=== PATIENT | female | born 1955 | race Caucasian/White ===

== ENCOUNTER 2021-04-30 16:58 | Emergency (ER) | payer BC, SELFPAY ==
--- NOTE | ~2021-04-30 | CT_ITS ---
EXAMINATION: CTA OF THE HEAD AND NECK CLINICAL INFORMATION: Dizziness and headaches. Right eyelid swelling and droop. COMPARISON: None. TECHNIQUE: Test bolus sequences followed by intravenous administration 70 mL of Omnipaque 350. Helical imaging was performed in the axial plane from the mediastinum to the skull vertex. Delayed postcontrast imaging of the head was also performed. The data was processed at the registered vascular technologist (rvt)'s workstation for generation of MIP sequences. Three-dimensional volume rendered reformatted images were also generated at an offline 3-D workstation. Stenoses are assessed in accordance with NASCET criteria unless otherwise indicated. This CT examination was performed using dose optimization techniques as appropriate, variously including the following: *Automated exposure control *Adjustment of mA and/or kV according to patient size (this includes techniques or standardized protocols for targeted exams where dose is matched to indication/reason for exam; i.e. extremities or head) *Use of iterative reconstruction technique DLP: 2168 mGy-cm. FINDINGS: CT head: There is no evidence of acute intracranial hemorrhage or territorial infarction. There is no loss of yeboah to white matter differentiation. No abnormal mass effect or midline shift is seen. No extra-axial fluid collections are identified. There is no abnormal enhancement. The ventricles are normal in size. There is no abnormal attenuation within the brain parenchyma. The osseous structures and soft tissues are normal. The mastoid air cells and visualized portions of the paranasal sinuses are well aerated. CTA neck: There is moderate eccentric luminal narrowing at the origin of the left subclavian artery due to lipid rich plaque. There is additional moderate stenotic narrowing in the left subclavian artery at the thoracic outlet as well. The common carotid arteries are normal in caliber. There is mild luminal narrowing at the origin of the left internal carotid artery with eccentric lipid rich plaque. Mild luminal irregularity in the mid cervical segment of the left ICA as well. Minimal luminal irregularity at the origin of the right ICA. The dominant right vertebral artery is normal in caliber. The left vertebral artery is hypoplastic. The V2 segment of the left vertebral artery demonstrates multifocal areas of luminal irregularity. There is focal severe stenotic narrowing of the left vertebral artery at the C5 level within the transverse foramen. The soft tissues of the neck are unremarkable. The imaged portions of the lungs are clear. Mild subpleural scarring partially visualized at the left lung apex. CTA head: The intradural vertebral arteries and basilar artery are normal. The posterior cerebral arteries are widely patent. The internal carotid arteries are of normal caliber. The ANA MARIA and MCA vascular complexes bilaterally are normal. The venous sinuses opacify normally. CT/CT angio head neck IMPRESSION: No acute intracranial process. No abnormal enhancement. Normal CT angiogram of the head. Moderate areas of luminal narrowing at the origin and thoracic outlet segment of the left subclavian artery. Mild luminal irregularities in the cervical internal carotid arteries without significant stenosis. Nondominant cervical left vertebral artery with luminal irregularities from presumed atheromatous disease. Severe focal stenosis in the mid V2 segment.
[2021-04-30 17:02] VITALS: BP 131/61; PULSE 108; RESP 20; TEMP 37.3; O2SAT 95; BMI 30.6
--- NOTE | 2021-04-30 18:19 | ED_ITS ---
HPI - General Adult General Chief complaint: Headache Stated complaint: ? stroke Time Seen by Provider: 04/30/21 17:36 Source: patient Mode of arrival: ambulatory Limitations: no limitations History of Present Illness HPI narrative: 65 y/o female with history of DM2, HLD, anxiety, depression, chronic back pain on chronic opiates, active smoker (1/2ppd) who presents to the ER from home with 2 weeks of intermittent headaches, dizzy spells and on/off chest pains. She was seen by her PCP who did blood workup and EKG which were unremarkable. She called her doctor again today when she developed new onset right upper eyelid swelling and drooping. She was told to come to the ER for further evaluation. She states it is painful, red and swollen. Worse with palpation. She denies trauma or FB sensation. No vision changes. She reports intermittent dizziness with position changes and it feels like the room is spinning. None presently, happened 2 times over the last 2 weeks when she bent down and stood up quickly. MD complaint: headache, dizziness, right eye pain Onset (ago): week(s) Location: head and face Radiation: non-radiation Severity: moderate Quality: aching Pain Consistency: intermittent Relieving factors: rest Exacerbating factors: movement Associated symptoms: chest pain, headaches and weakness Treatments prior to arrival: none Related Data Previous Rx's Medication Instructions Recorded euzvclqgpg-zlyyscyapurfg-ierr 1 cap PO Q8H PRN #10 cap 04/30/21 [Fioricet] erythromycin 0.5 inch OPHTHALMIC (EYE) BID #1 g 04/30/21 meclizine 25 mg PO TID PRN #10 tab 04/30/21 Allergies Allergy/AdvReac Type Severity Reaction Status Date / Time No Known Allergies Allergy Unverified 07/16/20 19:46 [No Known Allergies*] Review of Systems Review of Systems: Constitutional: No Fever, No Chills ENT/Mouth: No sore throat, No Rhinorrhea, No Swallowing Difficulty Eyes: No Eye Pain, No Swelling, No Redness Cardiovascular: + Chest Pain, No SOB, No Orthopnea, No Edema Respiratory: No Cough, No Sputum, No Wheezing, No dyspnea Gastrointestinal: No Nausea, No Vomiting, No Diarrhea, No abdominal Pain, No Hematochezia, No Melena Genitourinary: No Dysuria, No Urinary Frequency, No Hematuria Musculoskeletal: + joint pain,+ Myalgias Skin: No Skin Lesions, No rash Neuro: No Weakness, No Numbness, + Dizziness, + Headache Psych: No Anxiety/Panic, No Depression Heme/Lymph: No Bruising, No Lymphadenopathy Endocrine: No Polyuria, No Polydipsia [facility] Past Medical History Medical History (Updated 04/30/21 @ 21:28 by AGUSTO Dunne) Depression Diabetes High cholesterol Social History Social History Advance Directives: No Advance Directives Information Provided: Yes Physical Exam Vital Signs: Vital Signs: Last Vital Signs Temp 98.3 F 04/30/21 19:53 Pulse 80 04/30/21 19:53 Resp 18 04/30/21 19:53 BP 140/77 H 04/30/21 19:53 Pulse Ox 96 04/30/21 19:53 Body Mass Index 30.6 Appearance: Alert. Oriented X3. No acute distress. Eyes: Right upper eyelid with swelling, ertythema and small pustule medially, tender. Pupils equal, round and reactive to light. EOMI, no nystagmus. ENT: Pharynx normal. Neck: Normal inspection. Neck supple. CVS: Normal heart rate and rhythm. Pulses normal. Respiratory: No respiratory distress. Breath sounds normal. Abdomen: Soft and nontender. +BS x4 Skin: Skin warm and dry. Normal skin color. Normal skin turgor. No rashes. Extremities: No lower extremity edema. Neuro: Oriented X 3. No motor deficit. No sensory deficit. Ambulatory. Clear speech. Normal heel to toe and finger to nose. NIH Stroke Scale Internal: Initial- Upon Arrival Level of Consciousness: Alert Level of Consciousness Questions: Answers both questions correctly Level of Consciousness Commands: Performs both tasks correctly Best Gaze: Normal Visual: No visual loss Facial Palsy: Normal Motor Arm (Right): No drift Motor Arm (Left): No drift Motor Leg (Right): No drift Motor Leg (Left): No drift Limb Ataxia: Absent Sensory: Normal Best Language: No aphasia Dysarthia: Normal Extinction and Inattention: No abnormality Score: 0 Course Course Course Narrative: 65 y/o female presenting with 2 weeks of headaches, dizziness with position changes along with new right eyelid swelling and droop. Exam is consistent with hordeolum with visible pustule. Her neuro exam is completely intact and benign. No dizziness. Will get lab workup and CTA head/neck - given her symptoms have been going on for 2 weeks if she had a CVA it should be visible on imaging. Not a tPA candidate at this time with NIH 0 and duration of 2+ weeks. Reevaluation(s) Reevaluation #1: Labs normal. CT head showed no acute stroke or LVO. Results were reviewed with Dr. Rodriguez - no [facility] stroke. Her symptoms are minimal at this time without dizziness, only mild headache. She does not require inpatient admission at this time. Recommend starting baby ASA, PRN meclizine, fiorcet and f/u wtih PCP on Monday (has appointment) and Neurology for further workup and management. Stable for d/c home, patient agrees with plan and will return if any worsening symptoms. Medical Decision Making Lab Data Result diagrams: 04/30/21 18:13 04/30/21 18:13 Labs: Lab Results 04/30/21 04/30/21 04/30/21 Range/Units 18:13 18:13 18:13 WBC 8.1 (4.8-10.8) X10*3/uL RBC 5.11 (4.20-5.50) X10*6/uL Hgb 14.9 (12.0-16.0) g/dl Hct 44.9 (37-47) % MCV 87.9 (80-98) fL MCH 29.2 (27.0-33.0) pg MCHC 33.2 (31.0-35.0) g/dl RDW 12.3 (11.0-16.0) % Plt Count 330 (160-400) X10*3/uL MPV 9.9 (9.4-12.3) fL Immature Gran % (Auto) 0.5 H (0.0-0.4) % Neut % (Auto) 53.8 (45-73) % Lymph % (Auto) 34.1 (20-40) % [place] % (Auto) 8.4 (2-11) % Eos % (Auto) 2.7 (0-4) % Baso % (Auto) 0.5 (0-2) % Lymph # (Auto) 2.8 (1.2-4.9) X10*3/uL [place] # (Auto) 0.7 (0.1-1.2) X10*3/uL Eos # (Auto) 0.2 (0.0-0.4) X10*3/uL Baso # (Auto) 0.0 (0.0-0.2) X10*3/uL Abs Immat Gran (auto) 0.04 H (0.00-0.03) X10*3/uL Absolute Neuts (auto) 4.3 (2.0-8.3) X10*3/uL Absolute Nucleated RBC 0.000 (0.0-0.012) X10*3/uL Nucleated RBC % (auto) 0.0 (0.0-0.2) /100WBC Sodium 140 (135-145) mmol/L Potassium 3.8 (3.3-5.1) mmol/L Chloride 104 (96-108) mmol/L Carbon Dioxide 23 (22-29) mmol/L Anion Gap 17 (12-20) BUN 15 (9-16) mg/dL Creatinine 0.83 (0.5-1.4) mg/dL Estim Creat Clear Calc 66.0 Estimated GFR > 60 Random Glucose 167 H (60-115) mg/dL Calcium 9.7 (8.4-10.2) mg/dL Troponin I High Sens < 3.5 (<3.5-17.0) ng/L Discharge Plan Discharge Clinical Impression: Vertigo Headache Qualifiers: Headache type: unspecified Headache chronicity pattern: unspecified pattern Intractability: not intractable Qualified Code(s): R51.9 - Headache, unspecified Hordeolum Qualifiers: Hordeolum type: externum Laterality: right Eyelid: upper Qualified Code(s): H00.011 - Hordeolum externum right upper eyelid Patient Disposition: Home, Self-Care Instructions: Stye (ED), Vertigo (ED), General Headache (ED) Additional Instructions: Your lab workup today was unremarkable. Your CT scan did not show any acute strokes or blockages of the blood vessels. It did show some vessel narrowing, so recommend you start a baby aspirin 81 mg per day. Recommend following up with Neurology for further workup. Follow up with your PCP on Monday as scheduled. Take the prescribed medictions as needed for headache and dizziness. Use the antibiotic ointment in your eye 2x per day. Use warm compresses to your eye 5-6 times per day. Do not rub it scratch it. If you develop new or worsening symptoms call 911 or come back to the ER for further evaluation. Prescriptions: New meclizine 25 mg tablet 25 mg PO TID PRN (Reason: dizziness) Qty: 10 RF: 0 erythromycin 5 mg/gram (0.5 %) ointment 0.5 inch ophthalmic (eye) BID Qty: 1 RF: 0 zprftvocow-rczjimthjupxb-wnge [Fioricet] 50-300-40 mg capsule 1 cap PO Q8H PRN (Reason: pain) Qty: 10 RF: 0 Referrals: Sadia Londono MD [Physician] - 3 days (headaches, dizziness)
[2021-04-30 18:21] LABS: MANUAL DIFF FLAG NO
[2021-04-30 18:24] LABS: Basophils Percent Auto 0.5 % (0-2); Eosinophils Absolute Auto 0.2 X10*3/uL (0.0-0.4); Eosinophils Percent Auto 2.7 % (0-4); Hematocrit 44.9 % (37-47); Hemoglobin 14.9 g/dl (12.0-16.0); Imm Gran Abs Auto 0.04 X10*3/uL (0.00-0.03); Imm Gran Pct Auto 0.5 % (0.0-0.4); Lymphocytes Absolute Auto 2.8 X10*3/uL (1.2-4.9); Lymphocytes Percent Auto 34.1 % (20-40); Mean Corpuscular HGB Conc 33.2 g/dl (31.0-35.0); Mean Corpuscular Hemoglobin 29.2 pg (27.0-33.0); Mean Corpuscular Volume 87.9 fL (80-98); Mean Platelet Volume 9.9 fL (9.4-12.3); Monocytes Absolute Auto 0.7 X10*3/uL (0.1-1.2); Monocytes Percent Auto 8.4 % (2-11); Neutrophils Absolute Auto 4.3 X10*3/uL (2.0-8.3); Neutrophils Percent Auto 53.8 % (45-73); Platelet Count 330 X10*3/uL (160-400); Red Blood Count 5.11 X10*6/uL (4.20-5.50); Red Cell Distribution Width 12.3 % (11.0-16.0); White Blood Count 8.1 X10*3/uL (4.8-10.8)
[2021-04-30 18:46] LABS: Anion Gap 17 (12-20); Blood Urea Nitrogen 15 mg/dL (9-16); Calcium 9.7 mg/dL (8.4-10.2); Carbon Dioxide 23 mmol/L (22-29); Chloride 104 mmol/L (96-108); Estimated Glomerular Filt Rate > 60; Glucose Random 167 mg/dL (60-115); Sodium 140 mmol/L (135-145)
[2021-04-30 18:50] LABS: Troponin-I High Sensitivity < 3.5 ng/L (<3.5-17.0)
[2021-04-30] MEDS: iohexoL 350 MG/ML 100 ML INFUS..BTL IV (19:28)
[2021-04-30 19:31] LABS: Potassium 3.8 mmol/L (3.3-5.1)
[2021-04-30] MEDS: Acetaminophen 325 MG TABLET 975 MG PO (19:51)
[2021-04-30 19:53] VITALS: BP 140/77; PULSE 80; RESP 18; TEMP 36.8; O2SAT 96
[2021-04-30] MEDS: Ketorolac Tromethamine 30 MG/ML VIAL IVPUSH (21:36)
== END 2021-04-30 21:55 | disposition home or self-care (01) ==
PROVIDERS: Emergency Provider Internal Medicine; PCP Nurse Practitioner Family
DX: R42 Dizziness and giddiness (principal); R51.9 Headache, unspecified; H00.011 Hordeolum externum right upper eyelid; E11.9 Type 2 diabetes mellitus without complications
CPT/HCPCS: 36415; 70496; 70498; 80048; 84484; 85025; 96374; 99284; J1885; Q9967

== ENCOUNTER 2024-02-14 19:39 | Emergency (ER) | payer MEDICARE, BC, SELFPAY ==
--- NOTE | ~2024-02-14 | XR_ITS ---
EXAMINATION: XR SHOULDER, LEFT CLINICAL INFORMATION: Atraumatic left shoulder pain, question bursitis COMPARISON: None available. TECHNIQUE: AP external rotation, Grashey, scapular Y views of the left shoulder. FINDINGS: The bones and soft tissues are normal. No fracture. Glenohumeral and acromioclavicular alignment is anatomic with normal joint space. No abnormal soft tissue calcifications. XR/XR shoulder LT min 2V IMPRESSION: Unremarkable plain radiographs of the left shoulder.
--- NOTE | ~2024-02-14 | XR_ITS ---
EXAMINATION: XR CHEST 2 VIEW CLINICAL INFORMATION: Chest pain COMPARISON: None TECHNIQUE: PA and lateral views of the chest obtained. FINDINGS: The lungs are clear. There are no pleural effusions. The cardiomediastinal silhouette is normal. No rib fracture, bone lesion or pneumothorax is detected. XR/XR chest 2V IMPRESSION: No acute cardiopulmonary disease.
[2024-02-14 19:42] VITALS: BP 136/55; PULSE 93; RESP 16; TEMP 36.5; O2SAT 97; BMI 28.3
--- NOTE | 2024-02-14 19:42 | ECG_ITS ---
Test Reason : chest pain Blood Pressure : / mmHG Vent. Rate : 096 BPM Atrial Rate : 096 BPM P-R Int : 142 ms QRS Dur : 072 ms QT Int : 350 ms P-R-T Axes : 047 -26 068 degrees QTc Int : 442 ms Normal sinus rhythm Cannot rule out Anterior infarct , age undetermined Abnormal ECG No previous ECGs available Referred By: Kimberlyn Woodall Electronically Signed By:KAMLA MEHTA
--- NOTE | 2024-02-14 19:43 | ED_ITS ---
HPI - General Adult General Chief complaint: Chest Pain Stated complaint: Chest pain Time Seen by Provider: 02/15/24 01:09 Source: patient, RN notes reviewed and old records reviewed Mode of arrival: ambulatory Limitations: no limitations History of Present Illness HPI narrative: 68-year-old female medical history significant for diabetes, hyperlipidemia, chronic pain syndrome, anxiety and depression presents for evaluation of chest and back pain. Patient reports that she started with left shoulder pain about 3 weeks ago. She reports a history of bursitis and had a cortisone injection about 9 months ago left shoulder Patient reports that 3 days ago she started with chest pain feels that radiates to her back She also complains of left-sided pain and headache for the last 2 days Denies any injury, trauma. Denies any cough, shortness of breath Denies any abdominal pain, nausea, vomiting. She rates her pain as 8/10 constant Her pain is worse with movement Denies any known history of coronary artery disease Patient returned from [place] 3 days ago She has no other complaints or concerns at this time Related Data Previous Rx's ?Medication ?Instructions ?Recorded srqtnfkofm-itbibenouswtz-eybewxbj 1 cap PO Q8H PRN pain #10 caps 04/30/21 50 mg-300 mg-40 mg capsule (Fioricet) erythromycin 5 mg/gram (0.5 %) eye 0.5 inch ophthalmic (eye) BID #1 g 04/30/21 ointment meclizine 25 mg tablet 25 mg PO TID PRN dizziness #10 tabs 04/30/21 Allergies Allergy/AdvReac Type Severity Reaction Status Date / Time No Known Allergies Allergy Unverified 02/14/24 19:52 [No Known Allergies*] Review of Systems 2 Constitutional: Constitutional: Denies body ache(s), Denies chills, Denies fever(s) and Reports headache(s) Eyes: Eyes: Denies blurry vision ENT: Reports headache(s), Reports neck pain and Denies sore throat Cardiovascular: Cardiovascular: Reports chest pain and Denies dyspnea Respiratory: Respiratory: Denies cough and Denies dyspnea Gastrointestinal: Gastrointestinal: Denies abdominal pain, Denies nausea and Denies vomiting Genitourinary: Genitourinary: Denies dysuria Musculoskeletal: Musculoskeletal: Reports back pain, Reports arthralgias, Denies joint swelling, Reports limited range of motion and Reports neck pain Integumentary/Breasts: Skin/Breast: Denies rash Neurologic: Reports headache(s) Psychiatric: Psychiatric: Denies suicidal ideation [facility] Past Medical History Medical History (Updated 02/15/24 @ 01:25 by Robinson Farfan) Depression High cholesterol Diabetes Social History Social History Advance Directives: No Advance Directives Information Provided: No Physical Exam ED Vital Signs: Vital Signs - 24 hr 02/14/24 19:42 02/15/24 01:27 Temperature 97.7 F 98.5 F Pulse Rate 93 76 Respiratory Rate 16 16 Blood Pressure 136/55 L 123/67 Pulse Oximetry 97 95 Oxygen Delivery Method Room Air Room Air BMI result Body Mass Index 28.3 Const General: healthy appearing, comfortable, no acute distress, alert and awake Nutritional Appearance: well nourished Orientation/consciousness: patient oriented x3 HENMT Head: Yes normocephalic and Yes atraumatic Eyes Eyelids: Yes eyelids normal Conjunctivae: conjunctivae normal Sclerae: sclerae normal Corneas: corneas normal Pupils: Equal, round and reactive pupils present EOM: EOMs intact bilaterally Neck Neck: Yes full ROM Chest Chest palpation & inspection: no crepitus Resp Effort & Inspection: normal respiratory effort, able to speak in complete sentences, no audible wheezes and not labored Auscultation: clear to auscultation bilaterally Cardio Rate: regular rate Rhythm: regular rhythm GI Inspection: No distended Palpation (GI): Soft to palpation, not firm, nontender, no guarding and not rigid Back/Spine/Pelvis Other: Tenderness to the left trapezius muscle group last cervical paraspinous region. No vertebral tenderness Skin General skin exam: elasticity normal Neuro General: patient oriented x3 Cranial nerves: Yes Equal, round and reactive pupils present and Yes Bilaterally intact EOM present Cognition (Neuro): normal cognition Extrem Other: Tenderness globally to the left shoulder. She has full range of motion to left shoulder. No deformity. Course Course Course Narrative: RME:?68 yo female hx of shoulder bursitis here for eval of substernal chest pain radiation to back x3 days. recent flight back from [place]. admits to left shoulder pain radiating to left neck x3 days. hx bursitis. no injury/trauma. labs, ekg, cxr ordered. Full HPI, ROS and PE to be performed by the primary ED provider. Reevaluation(s) Reevaluation #1: Patient is prescribed oxycodone 10 mg at home which she reports that she has not taken. She has requesting a dose prior to discharge which was given. She has not driving home, her daughter is picking her up her report Time: 01:44 Medical Decision Making Medical Decision Making [facility] Narrative: 68-year-old female with past medical history as documented above presents for evaluation of chest pain, shoulder pain, back pain or neck pain. Her pain is reproducible on exam. There are no concerning lab findings, she was out for ACS. X-rays without traumatic injury. This likely related to a tension headache. Her D-dimer is negative, she was out for PE. Plan for discharge with symptomatic care. Vital signs are within normal limits Differential Diagnosis Differential Diagnoses: The differential diagnosis associated with the presentation includes Chest pain Shoulder pain Muscle strain Costochondritis ACS less likely PE GERD Anxiety Admission/Observation Consideration of admission/observation: Escalation of care including admission/observation considered Consider admission for chest pain but the patient rules out for ACS and PE, she has stable vitals Lab Data [facility] Lab Attestation statement: I reviewed the patient's lab results. No leukocytosis or anemia. Normal platelet count. No electrolyte abnormalities. Troponin undetectable. D-dimer less than 150 02/14/24 20:01 02/14/24 20:01 Labs: Lab Results 02/14/24 Range/Units 20:01 WBC 7.7 (4.8-10.8) X10*3/uL RBC 5.10 (4.20-5.50) X10*6/uL Hgb 14.7 (12.0-16.0) g/dl Hct 44.2 (37.0-47.0) % MCV 86.7 (80.0-98.0) fL MCH 28.8 (27.0-33.0) pg MCHC 33.3 (31.0-35.0) g/dl RDW 12.8 (11.0-16.0) % Plt Count 327 (160-400) X10*3/uL MPV 9.6 (9.4-12.3) fL Immature Gran % (Auto) 0.3 (0.0-0.4) % Neut % (Auto) 59.2 (45-73) % Lymph % (Auto) 29.1 (20-40) % [place] % (Auto) 8.7 (2-11) % Eos % (Auto) 2.2 (0-4) % Baso % (Auto) 0.5 (0-2) % Lymph # (Auto) 2.2 (1.2-4.9) X10*3/uL [place] # (Auto) 0.7 (0.1-1.2) X10*3/uL Eos # (Auto) 0.2 (0.0-0.4) X10*3/uL Baso # (Auto) 0.0 (0.0-0.2) X10*3/uL Abs Immat Gran (auto) 0.02 (0.00-0.03) X10*3/uL Absolute Neuts (auto) 4.6 (2.0-8.3) x10*3/uL Absolute Nucleated RBC 0.000 (0.0-0.012) X10*3/uL Nucleated RBC % (auto) 0.0 (0.0-0.2) /100WBC D-Dimer High Sensitivty < 150 NG/ML Sodium 140 (135-145) mmol/L Potassium 3.9 (3.3-5.1) mmol/L Chloride 107 (96-108) mmol/L Carbon Dioxide 23 (22-29) mmol/L Anion Gap 14 (12-20) BUN 21 H (9-16) mg/dL Creatinine 0.77 (0.5-1.4) mg/dL Estim Creat Clear Calc 65.7 Estimated GFR > 60 Random Glucose 194 H (60-115) mg/dL Calcium 9.5 (8.4-10.2) mg/dL Magnesium 2.0 (1.6-2.6) mg/dL Total Bilirubin 0.3 (0.0-1.0) mg/dL AST 12 (5-31) U/L ALT 17 (0-31) U/L Alkaline Phosphatase 95 (39-117) U/L Troponin I High Sens < 2.7 (<3.5-17.0) ng/L Total Protein 7.4 (6.5-8.0) g/dL Albumin 4.1 (3.5-5.0) g/dL Independent Interpretation I performed an independent interpretation of an: EKG (Normal sinus rhythm with a rate of [address] segment elevations or depressions. No ectopy) and Plain X-Ray Interpretation: Left shoulder x-ray without evidence of dislocation or acute fracture. No significant arthritic changes Chest x-ray without focal infiltrates, pneumothorax Radiology Impression Discussion of test interpretation with radiology: I have reviewed the radiologist's reading. Radiologist Impression: IMPRESSION: Unremarkable plain radiographs of the left shoulder. IMPRESSION: No acute cardiopulmonary disease. Discharge Plan Discharge Clinical Impression: Atypical chest pain, Acute shoulder pain, Back pain Patient Disposition: Home, Self-Care Instructions: Chest Pain (ED), Back Pain (ED), Shoulder Pain (ED) Additional Instructions: Your workup in the ER today was reassuring. This includes your blood work, EKG, chest x-ray and shoulder x-ray. Your pain is most likely musculoskeletal in origin. You may have some degree of bursitis as well. I recommend using ibuprofen/Tylenol for pain. You may use your home oxycodone for more severe breakthrough pain I recommend that you follow-up with the orthopedic or pain management doctor that gave you the cortisone injection as you are due for another Return for new or worsening symptoms Prescriptions: No Action meclizine 25 mg tablet 25 mg PO TID PRN (Reason: dizziness) Qty: 10 0RF erythromycin 5 mg/gram (0.5 %) ointment 0.5 inch ophthalmic (eye) BID Qty: 1 0RF hwigtynahb-iviswalakavll-ttag [Fioricet] 50-300-40 mg capsule 1 cap PO Q8H PRN (Reason: pain) Qty: 10 0RF Print Language: Belarusian
[2024-02-14 20:05] LABS: MANUAL DIFF FLAG NO
[2024-02-14 20:06] LABS: Basophils Percent Auto 0.5 % (0-2); Eosinophils Absolute Auto 0.2 X10*3/uL (0.0-0.4); Eosinophils Percent Auto 2.2 % (0-4); Hematocrit 44.2 % (37.0-47.0); Hemoglobin 14.7 g/dl (12.0-16.0); Imm Gran Abs Auto 0.02 X10*3/uL (0.00-0.03); Imm Gran Pct Auto 0.3 % (0.0-0.4); Lymphocytes Absolute Auto 2.2 X10*3/uL (1.2-4.9); Lymphocytes Percent Auto 29.1 % (20-40); Mean Corpuscular HGB Conc 33.3 g/dl (31.0-35.0); Mean Corpuscular Hemoglobin 28.8 pg (27.0-33.0); Mean Corpuscular Volume 86.7 fL (80.0-98.0); Mean Platelet Volume 9.6 fL (9.4-12.3); Monocytes Absolute Auto 0.7 X10*3/uL (0.1-1.2); Monocytes Percent Auto 8.7 % (2-11); Neutrophils Absolute Auto 4.6 x10*3/uL (2.0-8.3); Neutrophils Percent Auto 59.2 % (45-73); Platelet Count 327 X10*3/uL (160-400); Red Cell Distribution Width 12.8 % (11.0-16.0); White Blood Count 7.7 X10*3/uL (4.8-10.8)
[2024-02-14 20:14] LABS: D Dimer High Sensitivity < 150 NG/ML
[2024-02-14 20:19] LABS: Alanine Aminotransferase 17 U/L (0-31); Albumin Level 4.1 g/dL (3.5-5.0); Alkaline Phosphatase 95 U/L (39-117); Anion Gap 14 (12-20); Aspartate Amino Transferase 12 U/L (5-31); Bilirubin Total 0.3 mg/dL (0.0-1.0); Blood Urea Nitrogen 21 mg/dL (9-16); Calcium 9.5 mg/dL (8.4-10.2); Carbon Dioxide 23 mmol/L (22-29); Chloride 107 mmol/L (96-108); Creatinine Clr Calc Pharmacy 65.7; Estimated Glomerular Filt Rate > 60; Glucose Random 194 mg/dL (60-115); Potassium 3.9 mmol/L (3.3-5.1); Sodium 140 mmol/L (135-145); Total Protein 7.4 g/dL (6.5-8.0)
[2024-02-14 20:27] LABS: Troponin-I High Sensitivity < 2.7 ng/L (<3.5-17.0)
[2024-02-15 01:27] VITALS: BP 123/67; PULSE 76; RESP 16; TEMP 36.9; O2SAT 95
[2024-02-15] MEDS: oxyCODONE HCl Immed Release 5 MG TABLET 10 MG PO (01:41)
[2024-02-15 01:44] VITALS: BP 123/67; PULSE 76; RESP 16; TEMP 36.9; O2SAT 95
== END 2024-02-15 01:45 | disposition home or self-care (01) ==
PROVIDERS: Physician Assistant Medical; Emergency Provider Emergency Medicine Emergency Medical Services
DX: R07.89 Other chest pain (principal); M54.50 Low back pain, unspecified; G89.4 Chronic pain syndrome; R11.2 Nausea with vomiting, unspecified; M25.512 Pain in left shoulder; Z79.899 Other long term (current) drug therapy
CPT/HCPCS: 36415; 71046; 73030; 80053; 83735; 84484; 85025; 85379; 93005; 99283; 99284

== ENCOUNTER → 2024-02-14 19:42 | Outpatient (BNV) | payer MEDICARE, BC, SELFPAY | PROVIDERS: Emergency Provider Emergency Medicine Emergency Medical Services; Visit Provider Internal Medicine | DX: R07.9 Chest pain, unspecified (principal); R94.31 Abnormal electrocardiogram [ECG] [EKG] | CPT/HCPCS: 93010 ==

== ENCOUNTER 2024-09-27 09:08 | Inpatient (IN) | payer MEDICARE, BC, SELFPAY ==
--- NOTE | ~2024-09-27 | CT_ITS ---
EXAMINATION: CT ABDOMEN AND PELVIS WITHOUT AND WITH CONTRAST CLINICAL INFORMATION: lower GIB pain COMPARISON: CT abdomen/pelvis 09/01/2019 TECHNIQUE: Multidetector volumetric imaging was performed of the abdomen and pelvis before and after the IV administration of 85 mL of Omnipaque 350 intravenous contrast. Sagittal and coronal reformatted images were obtained on the technologist's workstation. This CT examination was performed using dose optimization techniques as appropriate, variously including the following: *Automated exposure control *Adjustment of mA and/or kV according to patient size (this includes techniques or standardized protocols for targeted exams where dose is matched to indication/reason for exam; i.e. extremities or head) *Use of iterative reconstruction technique DLP: 1290 mGy-cm FINDINGS: LUNG BASES: Lingular 0.6 cm nodule is stable since 2019 and favored to represent a benign such as nodular atelectasis/scarring. Bibasilar dependent subsegmental atelectasis. No pleural effusion. The visualized mediastinum is normal. LIVER, GALLBLADDER, AND BILIARY TREE: The liver is normal in size, shape, and attenuation. No focal hepatic lesion or biliary ductal dilatation is present. The gallbladder is unremarkable with no evidence of radiopaque gallstones, gallbladder wall thickening, or obvious pericholecystic inflammatory changes. PANCREAS: Unremarkable SPLEEN: Unremarkable ADRENAL GLANDS: 1.4 cm left adrenal nodule measures fat attenuation noncontrast imaging, favored to represent a lipid rich adenoma not significantly changed from 2019. Normal right adrenal gland. KIDNEYS AND URETERS: There is an anterior left renal 1.2 cm hyperattenuating cystic structure measuring up to 70 Hounsfield units (series #14 axial image 323). There is a left renal parapelvic cyst. There are additional subcentimeter left renal hypodense lesions are too small to characterize, though statistically favored to represent cysts. The kidneys are normal in size, shape, and attenuation. No hydronephrosis, hydroureter, or calculi seen. No perinephric stranding. BLADDER: Unremarkable GASTROINTESTINAL TRACT: Normal CT appearance of the stomach. The small and large bowel are nondilated. There is no evidence for contrast extravasation to suggest acute gastroduodenal bleeding. There is a length of sigmoid wall thickening with adjacent inflammatory stranding. On delayed phase imaging there is a peripherally enhancing mural collection along the left lateral rectosigmoid colon, distal to the previously described inflammatory stranding, measuring approximately 2 x 0.7 x 1.3 cm (series #16 axial image 176 and series #18 coronal image 80). No significant diverticulosis. Normal appendix. ABDOMINAL WALL: No significant hernia is appreciated. LYMPH NODES: Normal VASCULAR: Aorta is nonaneurysmal with moderate scattered atheromatous plaque and mild calcifications. PELVIC VISCERA: Status post hysterectomy. No adnexal masses. OSSEOUS STRUCTURES: Unremarkable CT/CT gi bleed abd pel wo/w IVcon IMPRESSION: 1. There is a length of sigmoid colon wall thickening with adjacent inflammatory stranding. On delayed phase imaging there is a 2 cm peripherally enhancing mural collection along the left lateral rectosigmoid colon, distal to the previously described inflammatory stranding. No significant diverticulosis. Findings are concerning for acute diverticulitis versus colitis with a small mural abscess. 2. There is an anterior left renal 1.2 cm hyperattenuating cystic structure measuring up to 70 Hounsfield units. This may represent a hemorrhagic/proteinaceous cyst, however a solid renal mass cannot be excluded. Recommend further evaluation with renal ultrasound. 3. There is no evidence for contrast extravasation to suggest acute gastroduodenal bleeding. Fleischner guidelines were followed. Electronically signed by: Yana Kurtz DO 09/27/2024 05:10 PM [facility]
--- NOTE | ~2024-09-27 | CT_ITS ---
EXAMINATION: CT ABDOMEN AND PELVIS WITH CONTRAST CLINICAL INFORMATION: Abdominal pain. COMPARISON: CT dated September 27, 2024. Noncontrast CT dated September 01, 2019. TECHNIQUE: Multidetector volumetric images were obtained from the superior aspect of the liver through the pubic symphysis following administration 85 mL of Omnipaque 350 intravenous contrast. Sagittal and coronal reformatted images were obtained on the technologist's workstation. Oral contrast: Yes This CT examination was performed using dose optimization techniques as appropriate, variously including the following: *Automated exposure control *Adjustment of mA and/or kV according to patient size (this includes techniques or standardized protocols for targeted exams where dose is matched to indication/reason for exam; i.e. extremities or head) *Use of iterative reconstruction technique DLP: 683 mGy-cm FINDINGS: LUNG BASES: Atelectasis, lung bases. LIVER, GALLBLADDER, AND BILIARY TREE: Liver measures 16 cm. Decreased enhancement pattern. No focal lesion. 3 mm hypodensity right hepatic lobe too small to be fully characterized. The portal veins, hepatic veins and intrahepatic portion IVC are patent. No intrahepatic or extrahepatic biliary ductal dilatation. No pericholecystic fluid collection or gallbladder wall thickening. Common bile duct measures 3 mm. PANCREAS: No focal mass. No peripancreatic fluid collection. No main pancreatic ductal dilatation. SPLEEN: 10 cm. No focal mass. ADRENAL GLANDS: There is a 1.4 cm low-density nodule measures 65 Hounsfield units, left adrenal gland. There is a 0.6 cm low density nodular lesion in the right adrenal gland. KIDNEYS AND URETERS: No hydronephrosis. There is a 1 cm low density at the corticomedullary junction of the anterior midportion lower pole junction left kidney, nonspecific. Subcentimeter cyst in lower pole left kidney. BLADDER: Fluid-filled. GASTROINTESTINAL TRACT: There is contrast throughout the small and large intestine. No intestinal obstruction pattern. No focal or diffuse wall thickening in the large intestine, specifically in the sigmoid colon. No diverticula. Terminal ileum is normal. The appendix appears short. No pneumatosis intestinalis. ABDOMINAL WALL: Small fat-containing umbilical hernia. LYMPH NODES: Nonspecific prominent inguinal lymph nodes. Nonspecific prominent mesenteric and retroperitoneal lymph nodes. VASCULAR: Mixed plaques seen at Concentric fashion throughout the infrarenal distal abdominal aorta resulting in 40% volume loss. No intimal flap. No aneurysm. Mixed plaques throughout the iliac arteries. The celiac trunk, superior mesenteric artery, main renal arteries and inferior mesenteric arteries are patent. PELVIC VISCERA: Absent uterus. OSSEOUS STRUCTURES: Multilevel thoracolumbar spondylosis. No acute fracture or gross listhesis. No lytic or blastic lesions. Bone marrow inhomogeneity suggesting osteopenia versus osteoporosis. CT/CT abdomen pelvis w IV con IMPRESSION: Resolved inflammatory/infectious process in the sigmoid colon. Atherosclerosis disease. Low-density nodules, adrenal glands. Lipid rich adenoma (based upon noncontrast CT dated September 01, 2019). Nonspecific lesion in the anterior lower pole/midportion junction left kidney. Recommend renal ultrasound Fleischner guidelines were followed. Electronically signed by: See Thomas MD 10/01/2024 03:25 PM [facility] GURROLA
--- NOTE | ~2024-09-27 | US_ITS ---
EXAMINATION: US RETROPERITONEAL LIMITED (RENAL ONLY) CLINICAL INFORMATION: Abdominal pain. Renal cyst. COMPARISON: CT abdomen/pelvis dated 09/27/2024. CT abdomen and pelvis 09/01/2019. Ultrasound abdomen 09/01/2019. TECHNIQUE: Ultrasound along with color Doppler imaging and spectral analysis was performed of the kidneys. FINDINGS: RIGHT KIDNEY: 11.3 x 6.5 x 4.6 cm (SAG x AP x TRV). The kidney is normal in size, contour, and echogenicity. Renal cortical thickness is normal. No calculi or focal parenchymal lesions. Redemonstration of a right-sided extrarenal pelvis. No hydronephrosis. LEFT KIDNEY: 12.3 x 5.1 x 4.2 cm (SAG x AP x TRV). The kidney is normal in size, contour, and echogenicity. Renal cortical thickness is normal. No renal calculi or hydronephrosis. Simple-appearing left renal cysts with the largest measuring up to 1.2 cm and likely corresponding to the prior CT findings. No concerning parenchymal lesion appreciated on ultrasound. US/US renal BI IMPRESSION: 1. Simple-appearing left renal cysts measuring up to 1.2 cm, likely corresponding to the prior CT findings. No concerning parenchymal lesion appreciated on ultrasound. 2. No hydronephrosis or nephrolithiasis. Electronically signed by: Lakhwinder Menendez MD 09/29/2024 10:19 AM [facility]
[2024-09-27 09:26] VITALS: BP 121/57; PULSE 93; RESP 16; TEMP 36.2; O2SAT 96; BMI 27.5
[2024-09-27 11:52] LABS: MANUAL DIFF FLAG NO
[2024-09-27 11:54] LABS: Basophils Percent Auto 0.4 % (0-2); Eosinophils Absolute Auto 0.1 X10*3/uL (0.0-0.4); Eosinophils Percent Auto 0.9 % (0-4); Hematocrit 46.1 % (37.0-47.0); Hemoglobin 15.6 g/dl (12.0-16.0); Imm Gran Abs Auto 0.03 X10*3/uL (0.00-0.03); Imm Gran Pct Auto 0.3 % (0.0-0.4); Lymphocytes Absolute Auto 2.5 X10*3/uL (1.2-4.9); Lymphocytes Percent Auto 21.9 % (20-40); Mean Corpuscular HGB Conc 33.8 g/dl (31.0-35.0); Mean Corpuscular Hemoglobin 29.5 pg (27.0-33.0); Mean Corpuscular Volume 87.1 fL (80.0-98.0); Mean Platelet Volume 9.5 fL (9.4-12.3); Monocytes Absolute Auto 0.8 X10*3/uL (0.1-1.2); Monocytes Percent Auto 7.1 % (2-11); Neutrophils Absolute Auto 7.9 x10*3/uL (2.0-8.3); Neutrophils Percent Auto 69.4 % (45-73); Platelet Count 391 X10*3/uL (160-400); Red Blood Count 5.29 X10*6/uL (4.20-5.50); Red Cell Distribution Width 12.7 % (11.0-16.0); White Blood Count 11.4 X10*3/uL (4.8-10.8)
[2024-09-27 12:17] LABS: Lipase 10 U/L (8-78)
[2024-09-27 12:21] LABS: Alanine Aminotransferase 15 U/L (0-31); Albumin Level 4.3 g/dL (3.5-5.0); Alkaline Phosphatase 82 U/L (39-117); Anion Gap 16 (12-20); Aspartate Amino Transferase 16 U/L (5-31); Bilirubin Total 0.6 mg/dL (0.0-1.0); Blood Urea Nitrogen 15 mg/dL (9-16); Calcium 9.1 mg/dL (8.4-10.2); Carbon Dioxide 20 mmol/L (22-29); Chloride 107 mmol/L (96-108); Creatinine Clr Calc Pharmacy 66.5; Estimated Glomerular Filt Rate > 60; Glucose Random 123 mg/dL (60-115); Sodium 139 mmol/L (135-145); Total Protein 7.5 g/dL (6.5-8.0)
--- NOTE | 2024-09-27 15:23 | ED.GENADULT ---
HPI - General Adult General Chief complaint: General Medical Stated complaint: Stomach Back Pain Rectal Bleed Time Seen by Provider: 09/27/24 15:23 Source: patient and old records reviewed Mode of arrival: ambulatory Limitations: no limitations History of Present Illness ED Provider: VEENA JAMA narrative: 69 yo female with PMH of depression, DM, HLD, baby aspirin daily but no thinners, last colonoscopy 1.5 years ago had one polyp, remote hx of colitis - no known hx of inflammatory bowel disease. Notes she started a new medication of lisinopril for proteinuria. Last night started with brbper rectum not with stool has some clots, no diarrhea. Notes she has some nausea and lower abdominal pain feels weak and dizzy with some dyspnea. She denies recent travel, antibiotics in the last month, food exposures. MD complaint: rectal bleeding, abdominal pain Onset (ago): hour(s) (13) Location: abdomen Radiation: non-radiation Severity: moderate Quality: constant and other (cramping) Pain Consistency: constant Relieving factors: none Exacerbating factors: movement Associated symptoms: nausea/vomiting, weakness and other (rectal bleeding) Treatments prior to arrival: none Related Data Previous Rx's ?Medication ?Instructions ?Recorded [id number]-ytjjqayzstcea-[id number] 1 cap PO Q8H PRN pain #10 caps 04/30/21 50 mg-300 mg-40 mg capsule (Fioricet) erythromycin 5 mg/gram (0.5 %) eye 0.5 inch ophthalmic (eye) BID #1 g 04/30/21 ointment meclizine 25 mg tablet 25 mg PO TID PRN dizziness #10 tabs 04/30/21 Allergies Allergy/AdvReac Type Severity Reaction Status Date / Time No Known Allergies Allergy Verified 09/27/24 09:26 [No Known Allergies*] Review of Systems Review of Systems: Constitutional : No Weight loss, No Fever, No Chills ENT/Mouth : No sore throat, No Rhinorrhea Eyes: No Swelling, No Redness Cardiovascular : No Chest Pain, No SOB, NoEdema Respiratory : No Cough, No Sputum, No Wheezing Gastrointestinal : Positive Nausea, no Vomiting, no Diarrhea, positive abdominal Pain, pos Hematochezia, No Melena Genitourinary : No Dysuria, No Urinary Frequency, No Hematuria, No Urgency Musculoskeletal : No joint pain, No Myalgias, No Joint Swelling Skin : No Skin Lesions, No rash Neuro : pos Weakness, No Numbness, No Dizziness, No Headache All other systems reviewed and are negative. [facility] Past Medical History Attestation statement: The following information was validated with the patient. Source: old records reviewed Medical History Depression High cholesterol Diabetes Social History Social History (Updated 09/27/24 @ 15:27 by Karuna Chance DO) Patient Tobacco Use Status: Tobacco use Unknown Advance Directives: No Advance Directives Information Provided: No Do you have a plan to hurt others: No Plan Physical Exam ED Vital Signs: Vital Signs - 24 hr 09/27/24 09:26 Temperature 97.2 F Pulse Rate 93 Respiratory Rate 16 Blood Pressure 121/57 L Pulse Oximetry 96 Oxygen Delivery Method Room Air BMI result Body Mass Index 27.5 Appearance: Alert. Oriented X3. No acute distress. Eyes: Pupils equal, round and reactive to light. ENT: Pharynx normal. Neck: Normal inspection. Neck supple. CVS: Normal heart rate and rhythm. Pulses normal. Respiratory: No respiratory distress. Breath sounds normal. Abdomen: Soft and moderate ttp in lower abdomen no rebound Rectal: Nerupa tech present - light blood on digit Skin: Skin warm and dry. Normal skin color. Extremities: No lower extremity edema. Neuro: Oriented X 3. No motor deficit. No sensory deficit. Medical Decision Making Medical Decision Making [facility] Narrative: 69 yo female with PMH of depression, DM, HLD, baby aspirin daily here now with lower abdominal pain and rectal bleeding - she denies travel, food exposures, antibiotic use. She has brb per rectum and has pain in abdomen at this time I have ordered CT scan, lactic acid, labs, type and screen, IVF and IV morphine for pain. Plan for GI bleed protocol. Signed out to Dr. Blanco pending work up Differential Diagnosis Differential Diagnoses: The differential diagnosis associated with the presentation includes colitis, mass Admission/Observation Consideration of admission/observation: Escalation of care including admission/observation considered Lab Data [facility] Lab Attestation statement: I reviewed the patient's lab results. 09/27/24 11:48 09/27/24 11:48 Labs: Lab Results 09/27/24 Range/Units 11:48 WBC 11.4 H (4.8-10.8) X10*3/uL RBC 5.29 (4.20-5.50) X10*6/uL Hgb 15.6 (12.0-16.0) g/dl Hct 46.1 (37.0-47.0) % MCV 87.1 (80.0-98.0) fL MCH 29.5 (27.0-33.0) pg MCHC 33.8 (31.0-35.0) g/dl RDW 12.7 (11.0-16.0) % Plt Count 391 (160-400) X10*3/uL MPV 9.5 (9.4-12.3) fL Immature Gran % (Auto) 0.3 (0.0-0.4) % Neut % (Auto) 69.4 (45-73) % Lymph % (Auto) 21.9 (20-40) % [place] % (Auto) 7.1 (2-11) % Eos % (Auto) 0.9 (0-4) % Baso % (Auto) 0.4 (0-2) % Lymph # (Auto) 2.5 (1.2-4.9) X10*3/uL [place] # (Auto) 0.8 (0.1-1.2) X10*3/uL Eos # (Auto) 0.1 (0.0-0.4) X10*3/uL Baso # (Auto) 0.0 (0.0-0.2) X10*3/uL Abs Immat Gran (auto) 0.03 (0.00-0.03) X10*3/uL Absolute Neuts (auto) 7.9 (2.0-8.3) x10*3/uL Absolute Nucleated RBC 0.000 (0.0-0.012) X10*3/uL Nucleated RBC % (auto) 0.0 (0.0-0.2) /100WBC Sodium 139 (135-145) mmol/L Potassium 4.0 (3.3-5.1) mmol/L Chloride 107 (96-108) mmol/L Carbon Dioxide 20 L (22-29) mmol/L Anion Gap 16 (12-20) BUN 15 (9-16) mg/dL Creatinine 0.74 (0.5-1.4) mg/dL Estim Creat Clear Calc 66.5 Estimated GFR > 60 Random Glucose 123 H (60-115) mg/dL Calcium 9.1 (8.4-10.2) mg/dL Total Bilirubin 0.6 (0.0-1.0) mg/dL AST 16 (5-31) U/L ALT 15 (0-31) U/L Alkaline Phosphatase 82 (39-117) U/L Total Protein 7.5 (6.5-8.0) g/dL Albumin 4.3 (3.5-5.0) g/dL Lipase 10 (8-78) U/L External Record Review External record reviewed: Outpatient record Discharge Plan Discharge Clinical Impression: Hematochezia, Abdominal pain, lower Patient Disposition: Still a Patient Prescriptions: No Action meclizine 25 mg tablet 25 mg PO TID PRN (Reason: dizziness) Qty: 10 0RF erythromycin 5 mg/gram (0.5 %) ointment 0.5 inch ophthalmic (eye) BID Qty: 1 0RF [id number] [Fioricet] 50-300-40 mg capsule 1 cap PO Q8H PRN (Reason: pain) Qty: 10 0RF Print Language: Bel[place]an
[2024-09-27 15:43] VITALS: RESP 16
[2024-09-27] MEDS: ondansetron HCL 4 MG/2 ML VIAL IVPUSH (15:43)
[2024-09-27] MEDS: Morphine Sulfate 4 MG/ML CARTRIDGE IVPUSH (15:43)
[2024-09-27 15:45] VITALS: BP 137/54; PULSE 95; RESP 16; TEMP 36.4; O2SAT 97
--- NOTE | 2024-09-27 15:45 | PC.NURSE ---
Patient awake and alert. skin flush, warm, dry. resp even and non labored. IV established. medicated as ordered for pain and nausea. patient requesting klonopin for anxiety, physician aware. patient aware of plan of care for CT. Alexx SOMMER
--- NOTE | 2024-09-27 15:46 | MHC.EDTECH ---
This pct assumed care of Patient at 1500 ,vitals taken ,Patient blood drawn including type and screen ,stool card collected all sent to lab .
[2024-09-27 15:52] LABS: OBS Int Ctl Valid YES; OBS1 POSITIVE (NEGATIVE)
[2024-09-27 15:58] LABS: INTERNATIONAL NORM RATIO 1.1 (0.9-1.1); Prothrombin Time 12.5 SEC (10.9-12.4)
[2024-09-27 16:06] LABS: Lactic Acid 1.8 mmol/L (0.5-2.0)
[2024-09-27] MEDS: iohexoL 350 MG/ML 100 ML INFUS..BTL 85 ML IV (16:20)
[2024-09-27] MEDS: clonazePAM 0.5 MG TABLET PO (16:23)
[2024-09-27] MEDS: Lactated Ringers 1,000 ML 999 ML IV (16:25)
[2024-09-27 18:05] VITALS: BP 109/54; PULSE 97; RESP 16; TEMP 36.8; O2SAT 96
--- NOTE | 2024-09-27 18:23 | PM.CNGS ---
ON LICENSE OF [facility] Past Medical History Medical History Depression High cholesterol Diabetes Social History Social History (Updated 09/27/24 @ 15:27 by Karuna Chance DO) Patient Tobacco Use Status: Tobacco use Unknown Advance Directives: No Advance Directives Information Provided: No Do you have a plan to hurt others: No Plan Meds Allergies Allergy/AdvReac Type Severity Reaction Status Date / Time No Known Allergies Allergy Verified 09/27/24 09:26 [No Known Allergies*] Active Medications: Current Medications Metronidazole (Flagyl) 500 mg in 100 mls @ 100 mls/hr IV ONCE ONE Stop: 09/27/24 18:48 Home Medications ?Medication ?Instructions ?Recorded ?Confirmed ?Last Taken ?Type atorvastatin 10 mg tablet 10 mg PO DAILY 09/27/24 Unknown History clonazepam 1 mg tablet 1 mg PO BID-TID PRN Anxiety 09/27/24 Unknown History duloxetine 60 mg capsule,delayed 60 mg PO DAILY 09/27/24 Unknown History release lisinopril 2.5 mg tablet 2.5 mg PO DAILY 09/27/24 Unknown History metformin 500 mg tablet 500 mg PO TID 09/27/24 Unknown History nicotine 21 mg/24 hr daily 1 patch topical DAILY 09/27/24 Unknown History transdermal patch omeprazole 20 mg capsule,delayed 20 mg PO BID 09/27/24 Unknown History release semaglutide 1 mg/dose (4 mg/3 mL) 1 mg subcut 09/27/24 Unknown History subcutaneous pen injector (Ozempic) Physical Exam Vital Signs: Vital Signs: Last Vital Signs Temp 98.2 F 09/27/24 18:05 Pulse 97 09/27/24 18:05 Resp 16 09/27/24 18:05 BP 109/54 L 09/27/24 18:05 Pulse Ox 96 09/27/24 18:05 O2 Del Method Room Air 09/27/24 18:05 BMI result Body Mass Index 27.5 Results Labs 09/27/24 11:48 09/27/24 11:48 Labs: Abnormal lab results 09/27/24 09/27/24 Range/Units 11:48 15:42 WBC 11.4 H (4.8-10.8) X10*3/uL PT 12.5 H (10.9-12.4) SEC Carbon Dioxide 20 L (22-29) mmol/L Random Glucose 123 H (60-115) mg/dL Short CBC 09/27/24 Range/Units 11:48 WBC 11.4 H (4.8-10.8) X10*3/uL Hgb 15.6 (12.0-16.0) g/dl Hct 46.1 (37.0-47.0) % Plt Count 391 (160-400) X10*3/uL BMP 09/27/24 11:48 Sodium 139 Potassium 4.0 Chloride 107 Carbon Dioxide 20 L BUN 15 Creatinine 0.74 Calcium 9.1 Liver Function 09/27/24 Range/Units 11:48 Total Bilirubin 0.6 (0.0-1.0) mg/dL AST 16 (5-31) U/L ALT 15 (0-31) U/L Alkaline Phosphatase 82 (39-117) U/L Albumin 4.3 (3.5-5.0) g/dL All other labs normal. Procedures Date of Service Date of Service: 09/27/24
--- NOTE | 2024-09-27 18:29 | P.HPHOSP_ITS ---
History of Present Illness Date of Service: 09/27/24 Attending physician on admission: Edelmira Holden Chief Complaint: Abd pain 69 yo F with PMH of depression, DM, HLD, baby aspirin daily but no thinners, last colonoscopy 1.5 years ago had one polyp, remote hx of colitis -patient comes with abd pain /nausea for 1 day duration.she also has nausea and decreased apptite , Last night started with brbper rectum not with stool has some clots, no diarrhea. abd lower abdominal pain mostly intermittent , feels weak and has some dizziness which is improving. She says she received IV pain medication and after that feeling somewhat better. She denies recent travel, antibiotics in the last month, food exposures. Notes she started a new medication of lisinopril for proteinuria. socia; hx : 40 pack year hx of somkin, no etoh or rec drugs. Lab imaging EKG reviewed: Has mild leukocytosis 11.4, mild tachycardia. Lactic acid normal ct abd:There is a length of sigmoid colon wall thickening with adjacent inflammatory stranding. On delayed phase imaging there is a 2 cm peripherally enhancing mural collection along the left lateral rectosigmoid colon, distal to the previously described inflammatory stranding- concerning for acute diverticulitis versus colitis with a small mural abscess. In ED patient received IV pain medication and antibiotic and admission was requested for possible acute diverticulitis versus colitis. Review of Systems 2 Review of Systems: Yes all other systems are reviewed and are negative [facility] Medical History Depression High cholesterol Diabetes Social History Patient Tobacco Use Status: Tobacco use Unknown Advance Directives: No Advance Directives Information Provided: No Do you have a plan to hurt others: No Plan Meds Allergies Allergy/AdvReac Type Severity Reaction Status Date / Time No Known Allergies Allergy Verified 09/27/24 09:26 [No Known Allergies*] Active Medications: Current Medications Acetaminophen (Acetaminophen 325 Mg Tablet) 650 mg PO Q6H PRN PRN Reason: Pain, Mild (Pain Scale 1-3), fever or headache Calcium Carbonate (Calcium Carbonate 750 Mg Tab.Chew) 750 mg PO Q4H PRN PRN Reason: Heartburn Metronidazole (Flagyl) 500 mg in 100 mls @ 100 mls/hr IV ONCE ONE Stop: 09/27/24 18:48 Lactated Ringer's (Lr) 1,000 mls @ 100 mls/hr IVCONT .Q10H BEV Piperacillin Sod/Tazobactam (Sod 3.375 gm/ Sodium Chloride) 50 mls @ 100 mls/hr IV Q6H BEV Magnesium Hydroxide (Milk Of Magnesia 30 Ml Oral.Susp) 30 ml PO DAILY PRN PRN Reason: Constipation Melatonin (Melatonin 3 Mg Tablet) 6 mg PO BEDTIME PRN PRN Reason: Insomnia Sodium Chloride (0.9 % Sodium Chloride Flush 3 Ml Syringe) 3 ml IVFLUSH QSHIFT BEV Home Medications ?Medication ?Instructions ?Recorded ?Confirmed ?Last Taken ?Type atorvastatin 10 mg tablet 10 mg PO DAILY 09/27/24 Unknown History clonazepam 1 mg tablet 1 mg PO BID-TID PRN Anxiety 09/27/24 Unknown History duloxetine 60 mg capsule,delayed 60 mg PO DAILY 09/27/24 Unknown History release lisinopril 2.5 mg tablet 2.5 mg PO DAILY 09/27/24 Unknown History metformin 500 mg tablet 500 mg PO TID 09/27/24 Unknown History nicotine 21 mg/24 hr daily 1 patch topical DAILY 09/27/24 Unknown History transdermal patch omeprazole 20 mg capsule,delayed 20 mg PO BID 09/27/24 Unknown History release semaglutide 1 mg/dose (4 mg/3 mL) 1 mg subcut 09/27/24 Unknown History subcutaneous pen injector (Ozempic) Physical Exam 2 Vital Signs and Narrative: Vital Signs: Last Vital Signs Temp 98.2 F 09/27/24 18:05 Pulse 97 09/27/24 18:05 Resp 16 09/27/24 18:05 BP 109/54 L 09/27/24 18:05 Pulse Ox 96 09/27/24 18:05 O2 Del Method Room Air 09/27/24 18:05 BMI result Body Mass Index 27.5 Appearance: Alert.? Oriented X3.? seems somfotable Moist mucous membranes. cvs: rrr, [id number] . res: clear to auscultation ,no rhonchii or wheezing abd: no rebound or guarding ,tenderness in llq mostly but has some tenderness in lower abd also, bs present. ext pulses present , no cyanosis . neuro: axo3 , nonfocal. Results Labs 09/27/24 11:48 09/27/24 11:48 Labs: Laboratory Results - last 24 hr 09/27/24 09/27/24 09/27/24 11:48 15:42 17:05 MCV 87.1 MCH 29.5 MCHC 33.8 RDW 12.7 Plt Count 391 MPV 9.5 Immature Gran % (Auto) 0.3 Neut % (Auto) 69.4 Lymph % (Auto) 21.9 [place] % (Auto) 7.1 Eos % (Auto) 0.9 Baso % (Auto) 0.4 Lymph # (Auto) 2.5 [place] # (Auto) 0.8 Eos # (Auto) 0.1 Baso # (Auto) 0.0 Abs Immat Gran (auto) 0.03 Absolute Neuts (auto) 7.9 Absolute Nucleated RBC 0.000 Nucleated RBC % (auto) 0.0 PT 12.5 H INR 1.1 Anion Gap 16 Estim Creat Clear Calc 66.5 Estimated GFR > 60 Random Glucose 123 H Lactic Acid 1.8 Calcium 9.1 Total Bilirubin 0.6 AST 16 ALT 15 Alkaline Phosphatase 82 Total Protein 7.5 Albumin 4.3 Lipase 10 Stool Occult Blood POSITIVE Blood Type O Positive Antibody Screen NEGATIVE Imaging Radiologist's Impressions: Impressions Abdomen/Pelvis CT 09/27/24 16:07 IMPRESSION: 1. There is a length of sigmoid colon wall thickening with adjacent inflammatory stranding. On delayed phase imaging there is a 2 cm peripherally enhancing mural collection along the left lateral rectosigmoid colon, distal to the previously described inflammatory stranding. No significant diverticulosis. Findings are concerning for acute diverticulitis versus colitis with a small mural abscess. 2. There is an anterior left renal 1.2 cm hyperattenuating cystic structure measuring up to 70 Hounsfield units. This may represent a hemorrhagic/proteinaceous cyst, however a solid renal mass cannot be excluded. Recommend further evaluation with renal ultrasound. 3. There is no evidence for contrast extravasation to suggest acute gastroduodenal bleeding. Fleischner guidelines were followed. Electronically signed by: Yana Kurtz DO 09/27/2024 05:10 PM [facility] [place] Plan (1) Diverticulitis: Status: Acute (2) Hematochezia: Status: Acute Plan 69 yo F with PMH of depression, DM, HLD, baby aspirin daily but no thinners, last colonoscopy 1.5 years ago had one polyp, remote hx of colitis: Possible acute diverticulitis versus colitis versus question of abscess Lactic acid normal, mild tachycardia wbc: 11.4 not septic at present plan: Added ESR and CRP IV hydration, IV morphine, antiemetic, IV Zosyn Surgery evaluation. Diabetes:Fingerstick with sliding scale coverage. Hypertension and hyperlipidemia: Medical reconciliation still pending. DVT prophylaxis: SubQ heparin Patient will need 2 midnight stay considering patient has significant intractable pain due to possible acute diverticulitis versus colitis need IV pain medication and antibiotics, also surgery evaluation. Above management discussed with the patient in detail length she understand and in agreement with the above plan, time spent 70 minute, patient full code. Quality Stroke Does the patient have a stroke diagnosis?: No VTE Prior VTE?: No VTE Risk Level:: Medical - moderate - high VTE Device Contraindication: N/A - Device Ordered VTE Drug Contraindication: Patient Refused
--- NOTE | 2024-09-27 19:19 | PHA.MEDREC ---
Addendum entered by Jaden Garcia RPh 09/27/24 19:30: Med rec was reviewed by [facility]. Patient said she takes metformin 1000 mg at bedtime. Original Note: Pharmacy Consult ? Medication Reconciliation Pharmacy has completed the medication reconciliation. Spoke to patient to confirm med list. patent states she in not taking Meclizine 25 mg. Patient confirmed Ozempic 1 mg is every Mondays, last dose was Monday09/23/24.
[2024-09-27] MEDS: cefTRIAXone sodium 2 GM VIAL IVPUSH (19:21)
[2024-09-27] MEDS: Lactated Ringers 1,000 ML 100 ML IVCONT (19:22)
[2024-09-27] MEDS: Piperacillin Sodium/Tazobactam 3.375 GM in 0.9 % Sodium Chloride 50 ML IV (19:29)
[2024-09-27] MEDS: metroNIDAZOLE/NS 500 MG/100 ML PIGGYBACK 100 MG IV (19:40)
--- NOTE | 2024-09-27 19:54 | PC.NURSE ---
this rn assumed care of pt at 1900. previous shift rn completed delayed medications from previous shift. pt denies new needs at this time
[2024-09-27 20:57] VITALS: BP 120/61; PULSE 89; RESP 16; TEMP 36.7; O2SAT 94
[2024-09-27] MEDS: Acetaminophen 325 MG TABLET 650 MG PO (21:19)
[2024-09-27 21:21] LABS: Glucose, Whole Blood 94 mg/dL (60-115)
[2024-09-28] VITALS (8 sets, daily range): BP systolic 105–136; BP diastolic 53–69; PULSE 68–84; RESP 12–18; TEMP 36–36.5; O2SAT 91–97
[2024-09-28] MEDS: clonazePAM 1 MG TABLET PO ×2 (01:07→20:16)
[2024-09-28] MEDS: Melatonin 3 MG TABLET 6 MG PO ×2 (01:07→20:16)
[2024-09-28] MEDS: Piperacillin Sodium/Tazobactam 3.375 GM in 0.9 % Sodium Chloride 50 ML IV ×5 (01:11→23:34)
[2024-09-28] MEDS: Morphine Sulfate 2 MG/ML CARTRIDGE IVPUSH ×2 (01:17→08:04)
[2024-09-28] MEDS: Lactated Ringers 1,000 ML 100 ML IVCONT ×3 (02:04→23:32)
[2024-09-28] MEDS: Omeprazole 20 MG CAPSULE.DR PO ×2 (06:27→16:36)
[2024-09-28 07:44] LABS: Glucose, Whole Blood 92 mg/dL (60-115)
[2024-09-28] MEDS: DULoxetine HCl 60 MG CAPSULE.DR PO (07:52)
[2024-09-28] MEDS: Multivitamin TABLET 1 TAB PO (07:54)
[2024-09-28] MEDS: lisinopriL 2.5 MG TABLET PO (07:54)
[2024-09-28] MEDS: Cyanocobalamin (Vitamin B-12) 1,000 MCG TABLET 1000 MCG PO (07:55)
[2024-09-28] MEDS: Cholecalciferol (Vitamin D3) 25 MCG TABLET PO (07:55)
[2024-09-28] MEDS: Ascorbic Acid 500 MG TABLET 1000 MG PO (07:56)
[2024-09-28] MEDS: Atorvastatin Calcium 10 MG TABLET PO (07:56)
[2024-09-28] MEDS: Acetaminophen 325 MG TABLET 650 MG PO ×2 (08:03→20:16)
[2024-09-28 08:38] LABS: Hemoglobin 13.2 g/dl (12.0-16.0); Mean Corpuscular Hemoglobin 29.2 pg (27.0-33.0); Mean Corpuscular Volume 88.5 fL (80.0-98.0); Mean Platelet Volume 9.8 fL (9.4-12.3); Platelet Count 275 X10*3/uL (160-400); Red Blood Count 4.52 X10*6/uL (4.20-5.50); Red Cell Distribution Width 12.9 % (11.0-16.0); White Blood Count 6.1 X10*3/uL (4.8-10.8)
[2024-09-28 08:50] LABS: Anion Gap 11 (12-20); Blood Urea Nitrogen 11 mg/dL (9-16); C Reactive Protein 1.15 mg/dL (< or = 0.50); Calcium 8.7 mg/dL (8.4-10.2); Carbon Dioxide 29 mmol/L (22-29); Chloride 105 mmol/L (96-108); Creatinine Clr Calc Pharmacy 60.7; Estimated Glomerular Filt Rate > 60; Glucose Random 100 mg/dL (60-115); Potassium 4.1 mmol/L (3.3-5.1); Sodium 141 mmol/L (135-145)
[2024-09-28 10:05] LABS: Erythrocyte Sedimentation Rate 14 MM/HR (0-20)
--- NOTE | 2024-09-28 10:28 | MHC.CM.PN ---
PT REPORTS SHE LIVES WITH HER KIDS AND IS INDEPENDENT WITH CARE SHE HAS NO DME AND NO SERVICES PCP AT [facility] [place] [facility] [place] SHE IS NOT READY TO COMPLETE A HCP BUT DID ACCEPT THE INFO AND BLANK DOCUMENT IMM DELIVERED DCP: HOME NO SERVICES VIA [facility]ILY TRANSP[facility]
--- NOTE | 2024-09-28 11:08 | CONS_ITS ---
DATE OF SERVICE: 09/28/2024 REFERRING PHYSICIAN: Dr. Holden REASON FOR CONSULTATION: GI bleeding, left lower quadrant pain, and abnormal CT scan of the colon. HISTORY OF PRESENT ILLNESS: The patient is a pleasant 69-year-old woman, who was admitted to the hospital after presenting to the emergency room yesterday with complaints of rectal bleeding and abdominal pain. She was well until about 1 a.m. on the morning of admission when she developed the onset of abdominal pain over both lower quadrants with the urge to move her bowels and passed some bloody stool with dark red blood and clots. She denies fever but did have some chills and presented to the emergency room. She was evaluated with laboratory studies and imaging, which are reviewed. The major finding is a CT scan of the abdomen and pelvis, which shows an area in the rectosigmoid with wall thickening, inflammatory stranding, and mural collection measuring 2 x 0.7 x 1.3 cm. This is described as being concerning for acute diverticulitis versus colitis with a small mural abscess. The patient denies any prior history of diverticulitis. She did undergo colonoscopy a year and half ago and had a small polyp removed. Those records are not available but will be obtained. PAST MEDICAL HISTORY: 1. Diabetes mellitus. 2. Hyperlipidemia. 3. Depression/anxiety. CURRENT MEDICATIONS: Her current medication list is reviewed in the chart. ALLERGIES: NONE REPORTED. FAMILY HISTORY: This is negative for GI malignancy. SOCIAL HISTORY: She does smoke. There is no significant alcohol intake and she denies drug use. REVIEW OF SYSTEMS: SKIN: No pruritus. HEENT: Negative. CARDIOPULMONARY: No shortness of breath or chest pain. GASTROINTESTINAL: As above. GENITOURINARY: Negative. NEUROPSYCHIATRIC: Negative. PHYSICAL EXAMINATION: GENERAL: Shows a pleasant female, lying comfortably in bed. VITAL SIGNS: Reviewed in electronic medical record and are stable. She has been afebrile. SKIN: Anicteric. HEENT: Shows no scleral icterus. NECK: Without lymphadenopathy or thyromegaly. LUNGS: Clear. HEART: Shows a regular rate and rhythm. S1, S2. No murmur. ABDOMEN: Soft. There is left lower quadrant tenderness to palpation. There is no guarding or rebound. EXTREMITIES: Without edema. LABORATORY DATA AND IMAGING STUDIES: Reviewed. IMPRESSION: Her presentation appears most consistent with an acute episode of diverticular disease or colitis based on the CT scanning report, ischemic colitis is a possibility. She has had no diarrhea since admission. However, I would recommend obtaining stool specimens to rule out any infectious etiology. The intramural fluid collection is suspicious for a small abscess related to diverticular disease. However, it is unusual to have rectal bleeding with this. She appears improved clinically since admission and feels somewhat better although she still has significant tenderness to palpation. I would recommend continuing antibiotics. If she has worsening symptoms, I would recommend repeating CAT scan. Surgical consultation has been obtained. We will review her colonoscopy report from the outside facility. Thanks for asking me to see her. I will follow her in the hospital with you. MD ASHOK Armenta/MARTHA / [phone]
[2024-09-28 11:17] LABS: Glucose, Whole Blood 100 mg/dL (60-115)
--- NOTE | 2024-09-28 13:28 | HO.PM.IMPN ---
Subjective Subjective Date of Service: 09/28/24 Interval History: lower abd pain Review of Systems Denies any overnight bleeding, Abdominal pain somewhat similar but says little improving No nausea today Physical Exam Vital Signs: Vital Signs: Last Vital Signs Temp 97.6 F 09/28/24 12:24 Pulse 75 09/28/24 12:24 Resp 16 09/28/24 12:24 BP 105/56 L 09/28/24 12:24 Pulse Ox 93 09/28/24 12:24 O2 Del Method Room Air 09/28/24 12:24 BMI result Body Mass Index 27.5 Appearance: Alert.? Oriented X3.? seems somfotable Moist mucous membranes. cvs: rrr, [id number] . res: clear to auscultation ,no rhonchii or wheezing abd: no rebound or guarding ,tenderness in llq mostly but has some tenderness in lower abd also, bs present. ext pulses present , no cyanosis . neuro: axo3 , nonfocal. Objective Data Active Medications Acetaminophen (Acetaminophen 325 Mg Tablet) 650 mg PO Q6H PRN PRN Reason: Pain, Mild (Pain Scale 1-3), fever or headache Last Admin: 09/28/24 08:03 Dose: 650 mg Documented By: DARLING Ascorbic Acid (Ascorbic Acid 500 Mg Tablet) 1,000 mg PO DAILY [facility] Last Admin: 09/28/24 07:56 Dose: 1,000 mg Documented By: DARLING Atorvastatin Calcium (Atorvastatin Calcium 10 Mg Tablet) 10 mg PO DAILY [facility] Last Admin: 09/28/24 07:56 Dose: 10 mg Documented By: DARLING Calcium Carbonate (Calcium Carbonate 750 Mg Tab.Chew) 750 mg PO Q4H PRN PRN Reason: Heartburn Clonazepam (Clonazepam 1 Mg Tablet) 1 mg PO TID PRN PRN Reason: Anxiety Last Admin: 09/28/24 01:07 Dose: 1 mg Documented By: RALF Cyanocobalamin (Cyanocobalamin (Vitamin B-12) 1,000 Mcg Tablet) 1,000 mcg PO DAILY [facility] Last Admin: 09/28/24 07:55 Dose: 1,000 mcg Documented By: DARLING Duloxetine HCl (Duloxetine Hcl 60 Mg Capsule.Dr) 60 mg PO DAILY [facility] Last Admin: 09/28/24 07:52 Dose: 60 mg Documented By: DARLING Glucose (Glucose Gel 15 Gm Gel..Gram.) 15 gm PO Q15M PRN; Protocol PRN Reason: per Hypoglycemia Standing Ord. Lactated Ringer's (Lr) 1,000 mls @ 100 mls/hr IVCONT .Q10H [facility] Last Infusion: 09/28/24 09:06 Dose: 100 mls/hr Documented By: DARLING Piperacillin Sod/Tazobactam (Sod 3.375 gm/ Sodium Chloride) 50 mls @ 100 mls/hr IV Q6H [facility] Last Admin: 09/28/24 13:06 Dose: 100 mls/hr Documented By: DARLING Dextrose (D10) 250 mls @ 750 mls/hr IV Q15M PRN; Protocol PRN Reason: per Hypoglycemia Standing Ord. Insulin Human Lispro (Insulin Lispro 100 Unit/Ml 3 Ml Vial) 0 unit SUBCUT QIDACHS [facility]; Protocol Last Admin: 09/28/24 11:55 Dose: Not Given Documented By: DARLING Non-Admin Reason: No Insulin Coverage Lisinopril (Lisinopril 2.5 Mg Tablet) 2.5 mg PO DAILY [facility]; Protocol Last Admin: 09/28/24 07:54 Dose: 2.5 mg Documented By: DARLING Magnesium Hydroxide (Milk Of Magnesia 30 Ml Oral.Susp) 30 ml PO DAILY PRN PRN Reason: Constipation Melatonin (Melatonin 3 Mg Tablet) 6 mg PO BEDTIME PRN PRN Reason: Insomnia Last Admin: 09/28/24 01:07 Dose: 6 mg Documented By: RALF Morphine Sulfate (Morphine Sulfate 2 Mg/Ml Cartridge) 2 mg IVPUSH Q4H PRN; Protocol PRN Reason: Pain, Moderate(Pain Scale 4-6) Last Admin: 09/28/24 08:04 Dose: 2 mg Documented By: DARLING Multivitamins/Vitamin C (Multivitamin Tablet) 1 tab PO DAILY [facility] Last Admin: 09/28/24 07:54 Dose: 1 tab Documented By: DARLING Nicotine (Nicotine 21 Mg Patch.Td24) 21 mg TRANSDERMA DAILY PRN PRN Reason: Smoking Cessation Omeprazole (Omeprazole 20 Mg Capsule.Dr) 20 mg PO BID@0630,1630 [facility] Last Admin: 09/28/24 06:27 Dose: 20 mg Documented By: RALF Ondansetron HCl (Ondansetron Hcl 4 Mg/2 Ml Vial) 4 mg IVPUSH Q6H PRN PRN Reason: Nausea Oxycodone HCl (Oxycodone Hcl Immed Release 5 Mg Tablet) 5 mg PO Q6H PRN PRN Reason: Pain, Moderate(Pain Scale 4-6) Sodium Chloride (0.9 % Sodium Chloride Flush 3 Ml Syringe) 3 ml IVFLUSH QSHIFT [facility] Last Admin: 09/28/24 08:15 Dose: Not Given Documented By: DARLING Non-Admin Reason: IV Running Vitamin D (Cholecalciferol (Vitamin D3) 25 Mcg Tablet) 25 mcg PO DAILY [facility] Last Admin: 09/28/24 07:55 Dose: 25 mcg Documented By: DARLING Labs 09/28/24 07:57 09/28/24 07:57 Labs: Laboratory Results - last 24 hr 09/27/24 09/27/24 09/27/24 15:42 17:05 21:16 MCV MCH MCHC RDW Plt Count MPV Absolute Nucleated RBC Nucleated RBC % (auto) ESR PT 12.5 H INR 1.1 Anion Gap Estim Creat Clear Calc Estimated GFR POC Glucose 94 Random Glucose Lactic Acid 1.8 Calcium C-Reactive Protein Stool Occult Blood POSITIVE Blood Type O Positive Antibody Screen NEGATIVE 09/28/24 09/28/24 09/28/24 07:36 07:57 11:11 MCV 88.5 MCH 29.2 MCHC 33.0 RDW 12.9 Plt Count 275 D MPV 9.8 Absolute Nucleated RBC 0.000 Nucleated RBC % (auto) 0.0 ESR 14 PT INR Anion Gap 11 L Estim Creat Clear Calc 60.7 Estimated GFR > 60 POC Glucose 92 100 Random Glucose 100 Lactic Acid Calcium 8.7 C-Reactive Protein 1.15 H Stool Occult Blood Blood Type Antibody Screen Assessment and Plan (1) Diverticulitis: Status: Acute Assessment and Plan: 69 yo F with PMH of depression, DM, HLD, baby aspirin daily but no thinners, last colonoscopy 1.5 years ago had one polyp, remote hx of colitis: Possible acute diverticulitis versus colitis versus question of abscess Lactic acid normal, mild tachycardia wbc: 11.4 not septic at present plan: ESR 14 and CRP 1.15 IV hydration, IV morphine, antiemetic, IV Zosyn GI eval. Diabetes:Fingerstick with sliding scale coverage. Hypertension and hyperlipidemia: Medical reconciliation still pending. DVT prophylaxis: SubQ heparin ongoing need for hospitlisation: patient has significant intractable pain due to possible acute diverticulitis versus colitis need IV pain medication and antibiotics, also surgery evaluation. Quality Stroke Does the patient have a stroke diagnosis?: No VTE Prior VTE?: No VTE Risk Level:: Medical - moderate - high VTE Device Contraindication: N/A - Device Ordered VTE Drug Contraindication: Patient Refused
[2024-09-28 16:19] LABS: Glucose, Whole Blood 102 mg/dL (60-115)
[2024-09-28] MEDS: 0.9 % Sodium Chloride Flush 3 ML SYRINGE IVFLUSH (20:02)
[2024-09-28 20:09] LABS: Glucose, Whole Blood 97 mg/dL (60-115)
[2024-09-29 03:16] VITALS: BP 119/64; PULSE 68; RESP 16; TEMP 36; O2SAT 93
[2024-09-29] MEDS: Omeprazole 20 MG CAPSULE.DR PO ×2 (06:12→15:30)
[2024-09-29] MEDS: Piperacillin Sodium/Tazobactam 3.375 GM in 0.9 % Sodium Chloride 50 ML IV ×3 (06:15→19:02)
[2024-09-29] MEDS: oxyCODONE HCl Immed Release 5 MG TABLET PO ×2 (06:18→20:15)
[2024-09-29 07:37] LABS: Glucose, Whole Blood 105 mg/dL (60-115)
[2024-09-29 08:06] VITALS: BP 147/67; PULSE 69; RESP 12; TEMP 36.1; O2SAT 94
[2024-09-29 08:26] LABS: Hematocrit 43.2 % (37.0-47.0); Hemoglobin 14.1 g/dl (12.0-16.0)
[2024-09-29] MEDS: DULoxetine HCl 60 MG CAPSULE.DR PO (08:52)
[2024-09-29] MEDS: lisinopriL 2.5 MG TABLET PO (08:52)
[2024-09-29] MEDS: Atorvastatin Calcium 10 MG TABLET PO (08:52)
[2024-09-29] MEDS: Ascorbic Acid 500 MG TABLET 1000 MG PO (08:52)
[2024-09-29] MEDS: Multivitamin TABLET 1 TAB PO (08:52)
[2024-09-29] MEDS: Cyanocobalamin (Vitamin B-12) 1,000 MCG TABLET 1000 MCG PO (08:52)
[2024-09-29] MEDS: Cholecalciferol (Vitamin D3) 25 MCG TABLET PO (08:52)
[2024-09-29] MEDS: clonazePAM 1 MG TABLET PO ×2 (08:59→20:15)
--- NOTE | 2024-09-29 11:26 | P.PNGI_ITS ---
Subjective Subjective Date of Service: 09/29/24 Interval History: Some rectal bleeding overnight, none now Pain improved tolerating clear liquids Critical Care Time (minutes): 0 Physical Exam 2 Vital Signs: Vital Signs: Last Vital Signs Temp 96.9 F 09/29/24 08:06 Pulse 69 09/29/24 08:06 Resp 12 09/29/24 08:06 BP 147/67 H 09/29/24 08:06 Pulse Ox 94 09/29/24 08:06 O2 Del Method Room Air 09/29/24 08:06 BMI result Body Mass Index 27.5 GI: Other: abdomen is soft, less tender in LLQ Objective Data Labs 09/29/24 08:18 09/28/24 07:57 Labs: Laboratory Results - last 24 hr 09/28/24 09/28/24 09/29/24 16:11 19:55 07:31 Hgb Hct POC Glucose 102 97 105 09/29/24 08:18 Hgb 14.1 Hct 43.2 POC Glucose Procedures Date of Service Date of Service: 09/29/24 Progress Note: A&P Assessment and plan (1) Diverticulitis: Status: Acute Assessment and Plan: overall improved continue abx monitor cbc repeat ct if worsening symptoms Time Spent With Patient Time: Total time managing care of this patient today ____ minutes. Quality Stroke Does the patient have a stroke diagnosis?: No VTE Prior VTE?: No VTE Risk Level:: Medical - moderate - high VTE Device Contraindication: N/A - Device Ordered VTE Drug Contraindication: Patient Refused
[2024-09-29 11:40] LABS: Glucose, Whole Blood 90 mg/dL (60-115)
--- NOTE | 2024-09-29 11:46 | HO.PM.IMPN ---
Subjective Subjective Date of Service: 09/29/24 Interval History: acute diverticulitis Review of Systems she had 3 episodes blood with stool ( seems painless) abd pain somewhat improving encouraged to try full liquid Physical Exam Vital Signs: Vital Signs: Last Vital Signs Temp 96.9 F 09/29/24 08:06 Pulse 69 09/29/24 08:06 Resp 12 09/29/24 08:06 BP 147/67 H 09/29/24 08:06 Pulse Ox 94 09/29/24 08:06 O2 Del Method Room Air 09/29/24 08:06 BMI result Body Mass Index 27.5 Appearance: Alert.? Oriented X3.? seems somfotable Moist mucous membranes. cvs: rrr, [id number] . res: clear to auscultation ,no rhonchii or wheezing abd: no rebound or guarding ,tenderness in llq mostly but has some tenderness in lower abd also, bs present. ext pulses present , no cyanosis . neuro: axo3 , nonfocal. Objective Data Active Medications Acetaminophen (Acetaminophen 325 Mg Tablet) 650 mg PO Q6H PRN PRN Reason: Pain, Mild (Pain Scale 1-3), fever or headache Last Admin: 09/28/24 20:16 Dose: 650 mg Documented By: WILLIAM Ascorbic Acid (Ascorbic Acid 500 Mg Tablet) 1,000 mg PO DAILY [facility] Last Admin: 09/29/24 08:52 Dose: 1,000 mg Documented By: SUNNI Atorvastatin Calcium (Atorvastatin Calcium 10 Mg Tablet) 10 mg PO DAILY [facility] Last Admin: 09/29/24 08:52 Dose: 10 mg Documented By: SUNNI Calcium Carbonate (Calcium Carbonate 750 Mg Tab.Chew) 750 mg PO Q4H PRN PRN Reason: Heartburn Clonazepam (Clonazepam 1 Mg Tablet) 1 mg PO TID PRN PRN Reason: Anxiety Last Admin: 09/29/24 08:59 Dose: 1 mg Documented By: SUNNI Cyanocobalamin (Cyanocobalamin (Vitamin B-12) 1,000 Mcg Tablet) 1,000 mcg PO DAILY [facility] Last Admin: 09/29/24 08:52 Dose: 1,000 mcg Documented By: SUNNI Duloxetine HCl (Duloxetine Hcl 60 Mg Capsule.) 60 mg PO DAILY [facility] Last Admin: 09/29/24 08:52 Dose: 60 mg Documented By: SUNNI Glucose (Glucose Gel 15 Gm Gel..Gram.) 15 gm PO Q15M PRN; Protocol PRN Reason: per Hypoglycemia Standing Ord. Piperacillin Sod/Tazobactam (Sod 3.375 gm/ Sodium Chloride) 50 mls @ 100 mls/hr IV Q6H [facility] Last Infusion: 09/29/24 07:27 Dose: Infused Documented By: SUNNI Dextrose (D10) 250 mls @ 750 mls/hr IV Q15M PRN; Protocol PRN Reason: per Hypoglycemia Standing Ord. Insulin Human Lispro (Insulin Lispro 100 Unit/Ml 3 Ml Vial) 0 unit SUBCUT QIDACHS [facility]; Protocol Last Admin: 09/29/24 07:53 Dose: Not Given Documented By: SUNNI Non-Admin Reason: poc oor Lisinopril (Lisinopril 2.5 Mg Tablet) 2.5 mg PO DAILY [facility]; Protocol Last Admin: 09/29/24 08:52 Dose: 2.5 mg Documented By: SUNNI Magnesium Hydroxide (Milk Of Magnesia 30 Ml Oral.Susp) 30 ml PO DAILY PRN PRN Reason: Constipation Melatonin (Melatonin 3 Mg Tablet) 6 mg PO BEDTIME PRN PRN Reason: Insomnia Last Admin: 09/28/24 20:16 Dose: 6 mg Documented By: WILLIAM Multivitamins/Vitamin C (Multivitamin Tablet) 1 tab PO DAILY [facility] Last Admin: 09/29/24 08:52 Dose: 1 tab Documented By: SUNNI Nicotine (Nicotine 21 Mg Patch.Td24) 21 mg TRANSDERMA DAILY PRN PRN Reason: Smoking Cessation Omeprazole (Omeprazole 20 Mg Capsule.Dr) 20 mg PO BID@0630,1630 [facility] Last Admin: 09/29/24 06:12 Dose: 20 mg Documented By: WILLIAM Ondansetron HCl (Ondansetron Hcl 4 Mg/2 Ml Vial) 4 mg IVPUSH Q6H PRN PRN Reason: Nausea Oxycodone HCl (Oxycodone Hcl Immed Release 5 Mg Tablet) 5 mg PO Q6H PRN PRN Reason: Pain, Moderate(Pain Scale 4-6) Last Admin: 09/29/24 06:18 Dose: 5 mg Documented By: WILLIAM Sodium Chloride (0.9 % Sodium Chloride Flush 3 Ml Syringe) 3 ml IVFLUSH QSHIFT [facility] Last Admin: 09/29/24 07:27 Dose: Not Given Documented By: SUNNI Non-Admin Reason: Previously Administered Vitamin D (Cholecalciferol (Vitamin D3) 25 Mcg Tablet) 25 mcg PO DAILY [facility] Last Admin: 09/29/24 08:52 Dose: 25 mcg Documented By: SUNNI Labs 09/29/24 08:18 09/28/24 07:57 Labs: Laboratory Results - last 24 hr 09/28/24 09/28/24 09/29/24 16:11 19:55 07:31 POC Glucose 102 97 105 09/29/24 11:32 POC Glucose 90 Assessment and Plan (1) Diverticulitis: Status: Acute Assessment and Plan: 69 yo F with PMH of depression, DM, HLD, baby aspirin daily but no thinners, last colonoscopy 1.5 years ago had one polyp, remote hx of colitis: Possible acute diverticulitis versus colitis versus question of abscess Lactic acid normal tachycardia improved ,leucocytosis resolved. has 3 episode of some bleedin,abd pain somewhat improving plan: check h/h ESR 14 and CRP 1.15 IV hydration, IV morphine, antiemetic, IV Zosyn GI eval noted. Diabetes:Fingerstick with sliding scale coverage. fs in 100;s ,avoid coverage below 200 mg/dl. Hypertension and hyperlipidemia: Medical reconciliation still pending. DVT prophylaxis: SubQ heparin ongoing need for hospitlisation: patient has significant intractable pain due to possible acute diverticulitis versus colitis need IV pain medication and antibiotics, also surgery evaluation. Quality Stroke Does the patient have a stroke diagnosis?: No VTE Prior VTE?: No VTE Risk Level:: Medical - moderate - high VTE Device Contraindication: N/A - Device Ordered VTE Drug Contraindication: Patient Refused
[2024-09-29 12:00] VITALS: BP 118/56; PULSE 68; RESP 18; TEMP 36.4; O2SAT 93
[2024-09-29 15:18] LABS: CDiff Gene PCR NEGATIVE (Negative)
[2024-09-29 15:46] VITALS: BP 98/56; PULSE 80; RESP 18; TEMP 36.6; O2SAT 95
[2024-09-29 16:42] LABS: Glucose, Whole Blood 108 mg/dL (60-115)
[2024-09-29 19:21] VITALS: BP 121/57; PULSE 78; RESP 18; TEMP 37.1; O2SAT 93
[2024-09-29] MEDS: Calcium Carbonate 750 MG TAB.CHEW PO (20:15)
[2024-09-29] MEDS: Melatonin 3 MG TABLET 6 MG PO (20:16)
[2024-09-29 20:27] LABS: Glucose, Whole Blood 99 mg/dL (60-115)
[2024-09-29 23:53] VITALS: BP 110/60; PULSE 70; RESP 16; TEMP 36.3; O2SAT 94
[2024-09-30] MEDS: Piperacillin Sodium/Tazobactam 3.375 GM in 0.9 % Sodium Chloride 50 ML IV ×4 (01:16→18:25)
[2024-09-30 03:20] VITALS: BP 107/63; PULSE 69; RESP 16; TEMP 36.6; O2SAT 95
[2024-09-30] MEDS: Omeprazole 20 MG CAPSULE.DR PO ×2 (06:27→16:39)
[2024-09-30 07:29] LABS: Glucose, Whole Blood 105 mg/dL (60-115)
[2024-09-30 08:02] VITALS: BP 136/69; PULSE 65; RESP 18; TEMP 36.6; O2SAT 95
[2024-09-30] MEDS: Ascorbic Acid 500 MG TABLET 1000 MG PO (08:23)
[2024-09-30] MEDS: 0.9 % Sodium Chloride Flush 3 ML SYRINGE IVFLUSH ×3 (08:24→20:22)
[2024-09-30] MEDS: DULoxetine HCl 60 MG CAPSULE.DR PO (08:24)
[2024-09-30] MEDS: Multivitamin TABLET 1 TAB PO (08:24)
[2024-09-30] MEDS: Atorvastatin Calcium 10 MG TABLET PO (08:24)
[2024-09-30] MEDS: Cholecalciferol (Vitamin D3) 25 MCG TABLET PO (08:24)
[2024-09-30] MEDS: Cyanocobalamin (Vitamin B-12) 1,000 MCG TABLET 1000 MCG PO (08:24)
[2024-09-30] MEDS: lisinopriL 2.5 MG TABLET PO (08:24)
[2024-09-30] MEDS: clonazePAM 1 MG TABLET PO ×2 (08:33→20:20)
[2024-09-30 08:45] LABS: Hematocrit 42.8 % (37.0-47.0); Hemoglobin 14.5 g/dl (12.0-16.0)
[2024-09-30 08:49] LABS: Adenovirus F 40/41 Not Detected (Not Detect.); Astrovirus Not Detected (Not Detect.); Campylobacter Not Detected (Not Detect.); Cryptosporidium Not Detected (Not Detect.); Cyclospora cayetanensis Not Detected (Not Detect.); E. coli EAEC Not Detected (Not Detect.); E. coli EPEC Not Detected (Not Detect.); E. coli ETEC Not Detected (Not Detect.); E. coli STEC Not Detected (Not Detect.); Entamoeba histolytica Not Detected (Not Detect.); Giardia lamblia Not Detected (Not Detect.); Norovirus GI/GII Not Detected (Not Detect.); Plesiomonas shigelloides Not Detected (Not Detect.); Rotavirus A Not Detected (Not Detect.); Salmonella Not Detected (Not Detect.); Sapovirus Not Detected (Not Detect.); Shigella sp./EIEC Not Detected (Not Detect.); Vibrio Not Detected (Not Detect.); Vibrio Cholerae Not Detected (Not Detect.); Yersinia enterocolitica Not Detected (Not Detect.)
--- NOTE | 2024-09-30 10:50 | P.PNIM_ITS ---
Subjective Subjective Date of Service: 09/30/24 Interval History: abd pain Review of Systems abd pain seems similar no new bleeding Physical Exam 2 Vital Signs: Vital Signs: Last Vital Signs Temp 97.8 F 09/30/24 08:02 Pulse 65 09/30/24 08:02 Resp 18 09/30/24 08:02 BP 136/69 09/30/24 08:02 Pulse Ox 95 09/30/24 08:02 O2 Del Method Room Air 09/30/24 08:02 BMI result Body Mass Index 27.5 Appearance: Alert.? Oriented X3.? seems somfotable Moist mucous membranes. cvs: rrr, [id number] . res: clear to auscultation ,no rhonchii or wheezing abd: no rebound or guarding ,tenderness in llq mostly but has some tenderness in lower abd also, bs present. ext pulses present , no cyanosis . neuro: axo3 , nonfocal. Objective Data Active Medications Acetaminophen (Acetaminophen 325 Mg Tablet) 650 mg PO Q6H PRN PRN Reason: Pain, Mild (Pain Scale 1-3), fever or headache Last Admin: 09/28/24 20:16 Dose: 650 mg Documented By: WILLIAM Ascorbic Acid (Ascorbic Acid 500 Mg Tablet) 1,000 mg PO DAILY [facility] Last Admin: 09/30/24 08:23 Dose: 1,000 mg Documented By: NAMRATA Atorvastatin Calcium (Atorvastatin Calcium 10 Mg Tablet) 10 mg PO DAILY [facility] Last Admin: 09/30/24 08:24 Dose: 10 mg Documented By: NAMRATA Calcium Carbonate (Calcium Carbonate 750 Mg Tab.Chew) 750 mg PO Q4H PRN PRN Reason: Heartburn Last Admin: 09/29/24 20:15 Dose: 750 mg Documented By: AMRIK Clonazepam (Clonazepam 1 Mg Tablet) 1 mg PO TID PRN PRN Reason: Anxiety Last Admin: 09/30/24 08:33 Dose: 1 mg Documented By: NAMRATA Cyanocobalamin (Cyanocobalamin (Vitamin B-12) 1,000 Mcg Tablet) 1,000 mcg PO DAILY [facility] Last Admin: 09/30/24 08:24 Dose: 1,000 mcg Documented By: NAMRATA Duloxetine HCl (Duloxetine Hcl 60 Mg Larissa.) 60 mg PO DAILY [facility] Last Admin: 09/30/24 08:24 Dose: 60 mg Documented By: NAMRATA Glucose (Glucose Gel 15 Gm Gel..Gram.) 15 gm PO Q15M PRN; Protocol PRN Reason: per Hypoglycemia Standing Ord. Piperacillin Sod/Tazobactam (Sod 3.375 gm/ Sodium Chloride) 50 mls @ 100 mls/hr IV Q6H [facility] Last Infusion: 09/30/24 08:22 Dose: Infused Documented By: NAMRATA Dextrose (D10) 250 mls @ 750 mls/hr IV Q15M PRN; Protocol PRN Reason: per Hypoglycemia Standing Ord. Insulin Human Lispro (Insulin Lispro 100 Unit/Ml 3 Ml Vial) 0 unit SUBCUT QIDACHS [facility]; Protocol Last Admin: 09/30/24 07:35 Dose: Not Given Documented By: NAMRATA Non-Admin Reason: No Insulin Coverage Lisinopril (Lisinopril 2.5 Mg Tablet) 2.5 mg PO DAILY [facility]; Protocol Last Admin: 09/30/24 08:24 Dose: 2.5 mg Documented By: NAMRATA Magnesium Hydroxide (Milk Of Magnesia 30 Ml Oral.Susp) 30 ml PO DAILY PRN PRN Reason: Constipation Melatonin (Melatonin 3 Mg Tablet) 6 mg PO BEDTIME PRN PRN Reason: Insomnia Last Admin: 09/29/24 20:16 Dose: 6 mg Documented By: AMRIK Multivitamins/Vitamin C (Multivitamin Tablet) 1 tab PO DAILY [facility] Last Admin: 09/30/24 08:24 Dose: 1 tab Documented By: NAMRATA Nicotine (Nicotine 21 Mg Patch.Td24) 21 mg TRANSDERMA DAILY PRN PRN Reason: Smoking Cessation Omeprazole (Omeprazole 20 Mg Capsule.Dr) 20 mg PO BID@0630,1630 [facility] Last Admin: 09/30/24 06:27 Dose: 20 mg Documented By: AMRIK Ondansetron HCl (Ondansetron Hcl 4 Mg/2 Ml Vial) 4 mg IVPUSH Q6H PRN PRN Reason: Nausea Oxycodone HCl (Oxycodone Hcl Immed Release 5 Mg Tablet) 5 mg PO Q6H PRN PRN Reason: Pain, Moderate(Pain Scale 4-6) Last Admin: 09/29/24 20:15 Dose: 5 mg Documented By: AMRIK Sodium Chloride (0.9 % Sodium Chloride Flush 3 Ml Syringe) 3 ml IVFLUSH QSHIFT [facility] Last Admin: 09/30/24 08:24 Dose: 3 ml Documented By: NAMRATA Vitamin D (Cholecalciferol (Vitamin D3) 25 Mcg Tablet) 25 mcg PO DAILY [facility] Last Admin: 09/30/24 08:24 Dose: 25 mcg Documented By: NAMRATA Labs 09/30/24 08:31 09/28/24 07:57 Labs: Laboratory Results - last 24 hr 09/29/24 09/29/24 09/29/24 11:32 13:55 16:36 POC Glucose 90 108 Stl C. cayetanensis PCR Not Detected Stool Rotavirus A PCR Not Detected Stl Adenov F 40/41 PCR Not Detected Stool Astrovirus (PCR) Not Detected Stool Campylobacter PCR Not Detected Stool Cryptosporidium PCR Not Detected Stl Sh Tox Pr E STEC PCR Not Detected Stool E coli O157 PCR Not applicable Stl Enterotoxigenic E PCR Not Detected Stool EPEC (PCR) Not Detected Stool EAEC (PCR) Not Detected Stl E. histolytica PCR Not Detected Stool Giardia Lamblia PCR Not Detected Stl P. shigelloides PCR Not Detected Stool Salmonella PCR Not Detected Stool Sapovirus (PCR) Not Detected Stl Shigella/EIEC PCR Not Detected St Y.enterocolitica PCR Not Detected Stool Vibrio (PCR) Not Detected Stl Vibrio cholerae PCR Not Detected Stl Norovirus GI/GII PCR Not Detected C. difficile Tox B Gene NEGATIVE 09/29/24 09/30/24 20:24 07:07 POC Glucose 99 105 Stl C. cayetanensis PCR Stool Rotavirus A PCR Stl Adenov F 40/41 PCR Stool Astrovirus (PCR) Stool Campylobacter PCR Stool Cryptosporidium PCR Stl Sh Tox Pr E STEC PCR Stool E coli O157 PCR Stl Enterotoxigenic E PCR Stool EPEC (PCR) Stool EAEC (PCR) Stl E. histolytica PCR Stool Giardia Lamblia PCR Stl P. shigelloides PCR Stool Salmonella PCR Stool Sapovirus (PCR) Stl Shigella/EIEC PCR St Y.enterocolitica PCR Stool Vibrio (PCR) Stl Vibrio cholerae PCR Stl Norovirus GI/GII PCR C. difficile Tox B Gene Assessment and Plan (1) Diverticulitis: Status: Acute Assessment and Plan: 69 yo F with PMH of depression, DM, HLD, baby aspirin daily but no thinners, last colonoscopy 1.5 years ago had one polyp, remote hx of colitis: Possible acute diverticulitis versus colitis versus question of abscess Lactic acid normal tachycardia improved ,leucocytosis resolved. has 3 episode of some bleedin,abd pain somewhat improving plan: check h/h ESR 14 and CRP 1.15 IV hydration, IV morphine, antiemetic, IV Zosyn GI eval noted. Diabetes:Fingerstick with sliding scale coverage. fs in 100;s ,avoid coverage below 200 mg/dl. Hypertension and hyperlipidemia:added home lisinopril and statin. DVT prophylaxis: SubQ heparin ongoing need for hospitlisation: patient has significant intractable pain due to possible acute diverticulitis versus colitis need IV pain medication and antibiotics, also surgery evaluation. Quality Stroke Does the patient have a stroke diagnosis?: No VTE Prior VTE?: No VTE Risk Level:: Medical - moderate - high VTE Device Contraindication: N/A - Device Ordered VTE Drug Contraindication: Patient Refused
[2024-09-30 11:16] LABS: Glucose, Whole Blood 113 mg/dL (60-115)
[2024-09-30 12:20] VITALS: BP 106/54; PULSE 77; RESP 12; TEMP 36.6; O2SAT 96
--- NOTE | 2024-09-30 14:21 | P.PNGI_ITS ---
Subjective Subjective Date of Service: 09/30/24 Interval History: c/o llq pain no bleeding Critical Care Time (minutes): 0 Physical Exam 2 Vital Signs: Vital Signs: Last Vital Signs Temp 97.8 F 09/30/24 12:20 Pulse 77 09/30/24 12:20 Resp 12 09/30/24 12:20 BP 106/54 L 09/30/24 12:20 Pulse Ox 96 09/30/24 12:20 O2 Del Method Room Air 09/30/24 12:20 BMI result Body Mass Index 27.5 Const: General: cooperative GI: Other: abdomen is soft, some llq discomfort to palpation Objective Data Labs 09/30/24 08:31 09/28/24 07:57 Procedures Date of Service Date of Service: 09/30/24 Progress Note: A&P Assessment and plan (1) Diverticulitis: Status: Acute Assessment and Plan: diet to be advanced stool testing negative so far if worsening sx, ct should be repeated Time Spent With Patient Time: Total time managing care of this patient today ____ minutes. Quality Stroke Does the patient have a stroke diagnosis?: No VTE Prior VTE?: No VTE Risk Level:: Medical - moderate - high VTE Device Contraindication: N/A - Device Ordered VTE Drug Contraindication: Patient Refused
[2024-09-30 15:51] VITALS: BP 131/60; PULSE 85; RESP 18; TEMP 37; O2SAT 93
[2024-09-30 16:40] LABS: Glucose, Whole Blood 140 mg/dL (60-115)
[2024-09-30 19:46] VITALS: BP 128/61; PULSE 87; RESP 18; TEMP 37.4; O2SAT 96
[2024-09-30 20:09] LABS: Glucose, Whole Blood 216 mg/dL (60-115)
[2024-09-30] MEDS: Calcium Carbonate 750 MG TAB.CHEW PO (20:20)
[2024-09-30] MEDS: Melatonin 3 MG TABLET 6 MG PO (20:20)
[2024-09-30] MEDS: Insulin Lispro 100 UNIT/ML 3 ML VIAL SUBCUT (20:21)
[2024-09-30 23:37] VITALS: BP 143/69; PULSE 76; RESP 16; TEMP 36.4; O2SAT 92
[2024-10-01] MEDS: Piperacillin Sodium/Tazobactam 3.375 GM in 0.9 % Sodium Chloride 50 ML IV ×4 (00:45→19:44)
[2024-10-01] MEDS: Omeprazole 20 MG CAPSULE.DR PO ×2 (06:33→16:17)
[2024-10-01 07:28] VITALS: BP 136/63; PULSE 78; RESP 16; TEMP 36.3; O2SAT 92
[2024-10-01 07:29] LABS: Glucose, Whole Blood 106 mg/dL (60-115)
[2024-10-01] MEDS: Ascorbic Acid 500 MG TABLET 1000 MG PO (08:17)
[2024-10-01] MEDS: lisinopriL 2.5 MG TABLET PO (08:17)
[2024-10-01] MEDS: 0.9 % Sodium Chloride Flush 3 ML SYRINGE IVFLUSH ×2 (08:17→16:18)
[2024-10-01] MEDS: clonazePAM 1 MG TABLET PO (08:17)
[2024-10-01] MEDS: Cyanocobalamin (Vitamin B-12) 1,000 MCG TABLET 1000 MCG PO (08:17)
[2024-10-01] MEDS: DULoxetine HCl 60 MG CAPSULE.DR PO (08:17)
[2024-10-01] MEDS: Atorvastatin Calcium 10 MG TABLET PO (08:17)
[2024-10-01] MEDS: Cholecalciferol (Vitamin D3) 25 MCG TABLET PO (08:17)
[2024-10-01] MEDS: Multivitamin TABLET 1 TAB PO (08:17)
[2024-10-01 08:51] LABS: Hematocrit 47.9 % (37.0-47.0); Hemoglobin 16.1 g/dl (12.0-16.0); Mean Corpuscular HGB Conc 33.6 g/dl (31.0-35.0); Mean Corpuscular Hemoglobin 29.1 pg (27.0-33.0); Mean Corpuscular Volume 86.5 fL (80.0-98.0); Mean Platelet Volume 9.9 fL (9.4-12.3); Platelet Count 310 X10*3/uL (160-400); Red Blood Count 5.54 X10*6/uL (4.20-5.50); Red Cell Distribution Width 12.3 % (11.0-16.0); White Blood Count 5.9 X10*3/uL (4.8-10.8)
--- NOTE | 2024-10-01 09:10 | P.CONGS_ITS ---
History of Present Illness Consult details Consult date: 10/01/24 <Aleyda Mccoy PA-C - Last Filed: 10/01/24 09:20> Reason for consult: other (diverticulitis ) <Aleyda Mccoy PA-C - Last Filed: 10/01/24 09:20> Narrative: Ms. Pantoja is a 69 year old female with PMH of HTN, hyperlipidemia, diabetes mellitus, GERD who presented to the ED for BRBPR and severe abd pain. She reports the pain started early Monday morning and woke her out of sleep. It was in the LLQ and sharp in nature, nonradiating. She also had clots per rectum. Work up in the ED included CBC, BMP, LFTs which was significant for mild leukocytosis. CT scan abd/pelvis was obtained which showed wall thickening of the sigmoid with surrounding inflammatory stranding with 2cm mural collection concerning for abscess. She was admitted to the hospitalist service and started on IV zosyn. She had improvement in her symptoms during her stay and the BRBPR resovled. She reports a few episodes of loose stools yesterday. Her abd pain was decreasing until this morning and reports increased pain following full liquids last night but overall improved since admission. Stool cultures and c diff negative. Last coloscopy about 1.5 y ago and reports 1 polyp at that time. Denies episodes of diverticulitis prior. Surgical hx significant for abd hysterectomy. <Aleyda Mccoy PA-C - Last Filed: 10/01/24 09:20> Review of Systems 2 Review of Systems: Yes all other systems are reviewed and are negative < Aleyda Mccoy PA-C - Last Filed: 10/01/24 09:20> [facility] Past Medical History Medical History: Medical History Depression High cholesterol Diabetes <Aleyda Mccoy PA-C - Last Filed: 10/01/24 09:20> Surgical History Surgical History: Surgical History (Updated 10/01/24 @ 09:19 by Aleyda Mccoy PA-C) H/O: hysterectomy <GONZALEZ Gomez Last Filed: 10/01/24 09:20> Social History Social History: Social History Household Members: Family Housing: House Do you presently have visiting nurse or other home services: No Patient Tobacco Use Status: Current everyday Tobacco user Cigarette Packs Per Day: 0.5 Cigarettes Per Day: 10.0 service: No <Aleyda Mccoy PA-C - Last Filed: 10/01/24 09:20> Meds Allergies/Adverse reactions: Allergies Allergy/AdvReac Type Severity Reaction Status Date / Time No Known Allergies Allergy Verified 09/27/24 09:26 [No Known Allergies*] <Aleyda Mccoy PA-C - Last Filed: 10/01/24 09:20> Active Medications: Current Medications Acetaminophen (Acetaminophen 325 Mg Tablet) 650 mg PO Q6H PRN PRN Reason: Pain, Mild (Pain Scale 1-3), fever or headache Last Admin: 09/28/24 20:16 Dose: 650 mg Ascorbic Acid (Ascorbic Acid 500 Mg Tablet) 1,000 mg PO DAILY [facility] Last Admin: 10/01/24 08:17 Dose: 1,000 mg Atorvastatin Calcium (Atorvastatin Calcium 10 Mg Tablet) 10 mg PO DAILY [facility] Last Admin: 10/01/24 08:17 Dose: 10 mg Calcium Carbonate (Calcium Carbonate 750 Mg Tab.Chew) 750 mg PO Q4H PRN PRN Reason: Heartburn Last Admin: 09/30/24 20:20 Dose: 750 mg Clonazepam (Clonazepam 1 Mg Tablet) 1 mg PO TID PRN PRN Reason: Anxiety Last Admin: 10/01/24 08:17 Dose: 1 mg Cyanocobalamin (Cyanocobalamin (Vitamin B-12) 1,000 Mcg Tablet) 1,000 mcg PO DAILY [facility] Last Admin: 10/01/24 08:17 Dose: 1,000 mcg Duloxetine HCl (Duloxetine Hcl 60 Mg Capsule.Dr) 60 mg PO DAILY [facility] Last Admin: 10/01/24 08:17 Dose: 60 mg Glucose (Glucose Gel 15 Gm Gel..Gram.) 15 gm PO Q15M PRN; Protocol PRN Reason: per Hypoglycemia Standing Ord. Piperacillin Sod/Tazobactam (Sod 3.375 gm/ Sodium Chloride) 50 mls @ 100 mls/hr IV Q6H [facility] Last Infusion: 10/01/24 07:19 Dose: Infused Dextrose (D10) 250 mls @ 750 mls/hr IV Q15M PRN; Protocol PRN Reason: per Hypoglycemia Standing Ord. Insulin Human Lispro (Insulin Lispro 100 Unit/Ml 3 Ml Vial) 0 unit SUBCUT QIDACHS [facility]; Protocol Last Admin: 10/01/24 07:35 Dose: Not Given Lisinopril (Lisinopril 2.5 Mg Tablet) 2.5 mg PO DAILY [facility]; Protocol Last Admin: 10/01/24 08:17 Dose: 2.5 mg Magnesium Hydroxide (Milk Of Magnesia 30 Ml Oral.Susp) 30 ml PO DAILY PRN PRN Reason: Constipation Melatonin (Melatonin 3 Mg Tablet) 6 mg PO BEDTIME PRN PRN Reason: Insomnia Last Admin: 09/30/24 20:20 Dose: 6 mg Multivitamins/Vitamin C (Multivitamin Tablet) 1 tab PO DAILY [facility] Last Admin: 10/01/24 08:17 Dose: 1 tab Nicotine (Nicotine 21 Mg Patch.Td24) 21 mg TRANSDERMA DAILY PRN PRN Reason: Smoking Cessation Omeprazole (Omeprazole 20 Mg Capsule.Dr) 20 mg PO BID@0630,1630 [facility] Last Admin: 10/01/24 06:33 Dose: 20 mg Ondansetron HCl (Ondansetron Hcl 4 Mg/2 Ml Vial) 4 mg IVPUSH Q6H PRN PRN Reason: Nausea Oxycodone HCl (Oxycodone Hcl Immed Release 5 Mg Tablet) 5 mg PO Q6H PRN PRN Reason: Pain, Moderate(Pain Scale 4-6) Last Admin: 09/29/24 20:15 Dose: 5 mg Sodium Chloride (0.9 % Sodium Chloride Flush 3 Ml Syringe) [facility] Last Admin: 10/01/24 08:17 Dose: 3 ml Vitamin D (Cholecalciferol (Vitamin D3) 25 Mcg Tablet) 25 mcg PO DAILY [facility] Last Admin: 10/01/24 08:17 Dose: 25 mcg <Aleyda Mccoy PA-C - Last Filed: 10/01/24 09:20> Home medications: Home Medications ?Medication ?Instructions ?Recorded ?Confirmed ?Last Taken ?Type ascorbic acid (vitamin C) 1,000 mg 1,000 mg PO DAILY 09/27/24 09/27/2424 History tablet (Vitamin C) aspirin 81 mg tablet,delayed 81 mg PO DAILY 09/27/24 09/27/24 09/27/24 History release atorvastatin 10 mg tablet 10 mg PO DAILY 09/27/24 09/27/24 09/27/24 History cholecalciferol (vitamin D3) 25 25 mcg PO DAILY 09/27/24 09/27/24 09/27/24 History mcg (1,000 unit) tablet (Vitamin D3) clonazepam 1 mg tablet 1 mg PO TID PRN Anxiety 09/27/24 09/27/24 Unknown History cyanocobalamin (vitamin B-12) 1,000 mcg PO DAILY 09/27/24 09/27/24 09/27/24 History 1,000 mcg tablet (Vitamin B-12) duloxetine 60 mg capsule,delayed 60 mg PO DAILY 09/27/24 09/27/24 09/27/24 History release lisinopril 2.5 mg tablet 2.5 mg PO DAILY 09/27/24 09/27/24 09/27/24 History melatonin 10 mg tablet 10 mg PO BEDTIME PRN Sleep 09/27/24 09/27/24 Unknown History metformin 500 mg tablet 1,000 mg PO BEDTIME 09/27/24 09/27/24 09/26/24 History multivitamin 1 tab PO DAILY 09/27/24 09/27/24 09/27/24 History nicotine 21 mg/24 hr daily 1 patch topical DAILY PRN Smoking 09/27/24 09/27/24 Unknown History transdermal patch Cessation omega [id number] oil 1,200 mg 1 cap PO DAILY 09/27/24 09/27/24 09/27/24 History (144 mg-216 mg) capsule (Fish Oil) omeprazole 20 mg capsule,delayed 20 mg PO BID@0630,1630 09/27/24 09/27/24 09/27/24 History release semaglutide 1 mg/dose (4 mg/3 mL) 1 mg subcut MO 09/27/24 09/27/24 09/23/24 History subcutaneous pen injector (Ozempic) <Aleyda Mccoy PA-C - Last Filed: 10/01/24 09:20> Physical Exam 2 Vital Signs: Vital Signs: Last Vital Signs Temp 97.3 F 10/01/24 07:28 Pulse 78 10/01/24 07:28 Resp 16 10/01/24 07:28 BP 136/63 10/01/24 07:28 Pulse Ox 92 10/01/24 07:28 O2 Del Method Room Air 10/01/24 07:28 BMI result Body Mass Index 27.5 <GONZALEZ Gomez Last Filed: 10/01/24 09:20> Const: General: comfortable, no acute distress and alert <GONZALEZ Gomez Last Filed: 10/01/24 09:20> Orientation/consciousness: patient oriented x3 <GONZALEZ Gomez Last Filed: 10/01/24 09:20> Resp: Effort & Inspection: normal respiratory effort <GONZALEZ Gomez Last Filed: 10/01/24 09:20> GI: Inspection: No distended and Yes scar (pfannensteil ) <GONZALEZ Gomez Last Filed: 10/01/24 09:20> Palpation (GI): Soft to palpation, Tenderness to palpation present (GI) (mild LLQ tenderness) with no rebound tenderness and no guarding <Aleyda Mccoy PA-C Last Filed: 10/01/24 09:20> Skin: General skin exam: no rashes or lesions noted <GONZALEZ Gomez Last Filed: 10/01/24 09:20> Neuro: General: patient oriented x3 and moves all extremities <GONZALEZ Gomez Last Filed: 10/01/24 09:20> Results Labs Result diagrams: 10/01/24 07:42 09/28/24 07:57 <GONZALEZ Gomez Last Filed: 10/01/24 09:20> Labs: Abnormal lab results 09/30/24 09/30/24 10/01/24 Range/Units 16:35 20:04 07:42 RBC 5.54 H D (4.20-5.50) X10*6/uL Hgb 16.1 H (12.0-16.0) g/dl Hct 47.9 H (37.0-47.0) % POC Glucose 140 H 216 H (60-115) mg/dL Short CBC 10/01/24 Range/Units 07:42 WBC 5.9 (4.8-10.8) X10*3/uL Hgb 16.1 H (12.0-16.0) g/dl Hct 47.9 H (37.0-47.0) % Plt Count 310 (160-400) X10*3/uL All other labs normal. <Aleyda Mccoy PA-C - Last Filed: 10/01/24 09:20> Imaging Abdomen CT scan report/results: report reviewed and image reviewed <Aleyda Mccoy PA-C - Last Filed: 10/01/24 09:20> Assessment and Plan (1) Diverticulitis: Status: Acute <Aleyda Mccoy PA-C - Last Filed: 10/01/24 09:20> admitted for LLQ last Sep 27 still have some LLQ pain although much better abd soft, some tenderness but benign looks well no fever Ct on admission shows segment of sigmoid with edema,small intramural abscess ffup CT continue IV abx seen and examined independently <Micheal Aggarwal MD - Last Filed: 10/01/24 09:37> 69 year old female with PMH of HTN, hyperlipidemia, diabetes mellitus, GERD admitted for diverticulitis with abscess. She reports some worsening in her pain this morning but overall better since admission. She is clinically appearing well with mild LLQ tenderness. Agree with repeat CT scan with IV contrast today to reassess sigmoid collection. Further plan dependent on imaging but overall she looks well and abd is benign and may just need time for improvement in abscess. Cont IV abx. Discussed with patient who understands and agrees with plan. Patient seen with Dr. Aggarwal. <Aleyda Mccoy PA-C - Last Filed: 10/01/24 09:20> Procedures Date of Service Date of Service: 10/01/24 <Aleyda Mccoy PA-C - Last Filed: 10/01/24 09:20> 10/01/24 <Micheal Aggarwal MD - Last Filed: 10/01/24 09:37>
[2024-10-01 10:22] LABS: Anion Gap 13 (12-20); Blood Urea Nitrogen 7 mg/dL (9-16); Calcium 9.3 mg/dL (8.4-10.2); Carbon Dioxide 26 mmol/L (22-29); Chloride 106 mmol/L (96-108); Creatinine Clr Calc Pharmacy 63.9; Estimated Glomerular Filt Rate > 60; Glucose Random 117 mg/dL (60-115); Potassium 3.8 mmol/L (3.3-5.1); Sodium 141 mmol/L (135-145)
--- NOTE | 2024-10-01 10:52 | PC.NURSE ---
Patient requesting to add [id number] Laila Martinez to contacts. Phone number [phone]. Patient giving verbal permission to release information to this contact. Patient informed primary care RN that [id number] will be calling for update on patient's status and care today.
[2024-10-01 11:18] LABS: Glucose, Whole Blood 113 mg/dL (60-115)
[2024-10-01] MEDS: iohexoL 350 MG/ML 100 ML INFUS..BTL IV (12:41)
[2024-10-01] MEDS: Barium Sulfate Oral (Berry) 450 ML ORAL.SUSP PO ×2 (12:42→12:43)
--- NOTE | 2024-10-01 13:31 | PM.EVENT ---
Event Note Date of Service: 10/01/24 Event Note: seen on ffup continues to look well abd soft abd benign ffup CT shows improvement of diverticulitis ok to have clears dw patient'continue IV abx Time Spent With Patient Time: Total time managing care of this patient today ____ minutes.
--- NOTE | 2024-10-01 14:40 | P.PNIM_ITS ---
Subjective Subjective Date of Service: 10/01/24 Interval History: abd pain Review of Systems abd pain seems similar no nausea/vomiting has some diarrhae Physical Exam 2 Vital Signs: Vital Signs: Last Vital Signs Temp 97.3 F 10/01/24 07:28 Pulse 78 10/01/24 07:28 Resp 16 10/01/24 07:28 BP 136/63 10/01/24 07:28 Pulse Ox 92 10/01/24 07:28 O2 Del Method Room Air 10/01/24 07:28 BMI result Body Mass Index 27.5 Appearance: Alert.? Oriented X3.? seems somfotable Moist mucous membranes. cvs: rrr, [id number] . res: clear to auscultation ,no rhonchii or wheezing abd: no rebound or guarding ,tenderness in llq mostly but has some tenderness in lower abd also, bs present. ext pulses present , no cyanosis . neuro: axo3 , nonfocal. Objective Data Active Medications Acetaminophen (Acetaminophen 325 Mg Tablet) 650 mg PO Q6H PRN PRN Reason: Pain, Mild (Pain Scale 1-3), fever or headache Last Admin: 09/28/24 20:16 Dose: 650 mg Documented By: WILLIAM Ascorbic Acid (Ascorbic Acid 500 Mg Tablet) 1,000 mg PO DAILY [facility] Last Admin: 10/01/24 08:17 Dose: 1,000 mg Documented By: NAMRATA Atorvastatin Calcium (Atorvastatin Calcium 10 Mg Tablet) 10 mg PO DAILY [facility] Last Admin: 10/01/24 08:17 Dose: 10 mg Documented By: NAMRATA Calcium Carbonate (Calcium Carbonate 750 Mg Tab.Chew) 750 mg PO Q4H PRN PRN Reason: Heartburn Last Admin: 09/30/24 20:20 Dose: 750 mg Documented By: AMRIK Clonazepam (Clonazepam 1 Mg Tablet) 1 mg PO TID PRN PRN Reason: Anxiety Last Admin: 10/01/24 08:17 Dose: 1 mg Documented By: NAMRATA Cyanocobalamin (Cyanocobalamin (Vitamin B-12) 1,000 Mcg Tablet) 1,000 mcg PO DAILY [facility] Last Admin: 10/01/24 08:17 Dose: 1,000 mcg Documented By: NAMRATA Duloxetine HCl (Duloxetine Hcl 60 Mg Capsule.Dr) 60 mg PO DAILY [facility] Last Admin: 10/01/24 08:17 Dose: 60 mg Documented By: NAMRATA Glucose (Glucose Gel 15 Gm Gel..Gram.) 15 gm PO Q15M PRN; Protocol PRN Reason: per Hypoglycemia Standing Ord. Piperacillin Sod/Tazobactam (Sod 3.375 gm/ Sodium Chloride) 50 mls @ 100 mls/hr IV Q6H [facility] Last Infusion: 10/01/24 14:15 Dose: Infused Documented By: NAMRATA Dextrose (D10) 250 mls @ 750 mls/hr IV Q15M PRN; Protocol PRN Reason: per Hypoglycemia Standing Ord. Insulin Human Lispro (Insulin Lispro 100 Unit/Ml 3 Ml Vial) 0 unit SUBCUT QIDACHS [facility]; Protocol Last Admin: 10/01/24 11:33 Dose: Not Given Documented By: NAMRATA Non-Admin Reason: No Insulin Coverage Lisinopril (Lisinopril 2.5 Mg Tablet) 2.5 mg PO DAILY [facility]; Protocol Last Admin: 10/01/24 08:17 Dose: 2.5 mg Documented By: NAMRATA Magnesium Hydroxide (Milk Of Magnesia 30 Ml Oral.Susp) 30 ml PO DAILY PRN PRN Reason: Constipation Melatonin (Melatonin 3 Mg Tablet) 6 mg PO BEDTIME PRN PRN Reason: Insomnia Last Admin: 09/30/24 20:20 Dose: 6 mg Documented By: AMRIK Multivitamins/Vitamin C (Multivitamin Tablet) 1 tab PO DAILY [facility] Last Admin: 10/01/24 08:17 Dose: 1 tab Documented By: NAMRATA Nicotine (Nicotine 21 Mg Patch.Td24) 21 mg TRANSDERMA DAILY PRN PRN Reason: Smoking Cessation Omeprazole (Omeprazole 20 Mg Capsule.) 20 mg PO BID@0630,1630 [facility] Last Admin: 10/01/24 06:33 Dose: 20 mg Documented By: AMRIK Ondansetron HCl (Ondansetron Hcl 4 Mg/2 Ml Vial) 4 mg IVPUSH Q6H PRN PRN Reason: Nausea Oxycodone HCl (Oxycodone Hcl Immed Release 5 Mg Tablet) 5 mg PO Q6H PRN PRN Reason: Pain, Moderate(Pain Scale 4-6) Last Admin: 12/01/24 20:15 Dose: 5 mg Documented By: AMRIK Sodium Chloride (0.9 % Sodium Chloride Flush 3 Ml Syringe) 3 ml IVFLUSH QSHIFT [facility] Last Admin: 10/01/24 08:17 Dose: 3 ml Documented By: NAMRATA Vitamin D (Cholecalciferol (Vitamin D3) 25 Mcg Tablet) 25 mcg PO DAILY [facility] Last Admin: 10/01/24 08:17 Dose: 25 mcg Documented By: NAMRATA Labs 10/01/24 07:42 10/01/24 09:43 Labs: Laboratory Results - last 24 hr 09/30/24 09/30/24 10/01/24 16:35 20:04 07:25 MCV MCH MCHC RDW Plt Count MPV Absolute Nucleated RBC Nucleated RBC % (auto) Hold Purple Top Anion Gap Estim Creat Clear Calc Estimated GFR POC Glucose 140 H 216 H 106 Random Glucose Calcium 10/01/24 10/01/24 10/01/24 07:42 09:43 10:03 MCV 86.5 MCH 29.1 MCHC 33.6 RDW 12.3 Plt Count 310 MPV 9.9 Absolute Nucleated RBC 0.000 Nucleated RBC % (auto) 0.0 Hold Purple Top SEE NOTE Anion Gap 13 Estim Creat Clear Calc 63.9 Estimated GFR > 60 POC Glucose Random Glucose 117 H Calcium 9.3 D 10/01/24 11:12 MCV MCH MCHC RDW Plt Count MPV Absolute Nucleated RBC Nucleated RBC % (auto) Hold Purple Top Anion Gap Estim Creat Clear Calc Estimated GFR POC Glucose 113 Random Glucose Calcium Assessment and Plan (1) Diverticulitis: Status: Acute Assessment and Plan: 69 yo F with PMH of depression, DM, HLD, baby aspirin daily but no thinners, last colonoscopy 1.5 years ago had one polyp, remote hx of colitis: Possible acute diverticulitis versus colitis versus question of abscess Lactic acid normal tachycardia improved ,leucocytosis resolved. has 3 episode of some bleedin,abd pain somewhat improving plan: h/h stable no fevers ESR 14 and CRP 1.15 abd pain simila-added ct abd , suergery eval. IV hydration, IV morphine, antiemetic, IV Zosyn GI eval noted. Diabetes:Fingerstick with sliding scale coverage. fs in 100;s ,avoid coverage below 200 mg/dl. Hypertension and hyperlipidemia:added home lisinopril and statin. DVT prophylaxis: SubQ heparin ongoing need for hospitlisation: patient has significant intractable pain due to possible acute diverticulitis versus colitis need IV pain medication and antibiotics, also surgery evaluation. Quality Stroke Does the patient have a stroke diagnosis?: No VTE Prior VTE?: No VTE Risk Level:: Medical - moderate - high VTE Device Contraindication: N/A - Device Ordered VTE Drug Contraindication: Patient Refused
[2024-10-01] MEDS: Loperamide HCl 2 MG CAPSULE PO (14:50)
[2024-10-01] MEDS: oxyCODONE HCl Immed Release 5 MG TABLET PO (14:57)
--- NOTE | 2024-10-01 15:37 | P.PNGI_ITS ---
Subjective Subjective Date of Service: 10/01/24 Interval History: c/o diarrhea still c/o llq pain Critical Care Time (minutes): 0 Physical Exam 2 Vital Signs: Vital Signs: Last Vital Signs Temp 97.3 F 10/01/24 07:28 Pulse 78 10/01/24 07:28 Resp 16 10/01/24 07:28 BP 136/63 10/01/24 07:28 Pulse Ox 92 10/01/24 07:28 O2 Del Method Room Air 10/01/24 07:28 BMI result Body Mass Index 27.5 GI: Other: abdomen is soft, mild llq discomfort with palpation Objective Data Labs 10/01/24 07:42 10/01/24 09:43 Labs: Procedures Date of Service Date of Service: 10/01/24 Progress Note: A&P Assessment and plan (1) Diverticulitis: Status: Acute Assessment and Plan: Stool tests negative, ok to start imodium may add dicyclomine for abd pain CT shows improvement advance diet as tolerated. Time Spent With Patient Time: Total time managing care of this patient today ____ minutes. Quality Stroke Does the patient have a stroke diagnosis?: No VTE Prior VTE?: No VTE Risk Level:: Medical - moderate - high VTE Device Contraindication: N/A - Device Ordered VTE Drug Contraindication: Patient Refused
[2024-10-01 16:00] VITALS: BP 134/60; PULSE 78; RESP 16; TEMP 36.3; O2SAT 96
[2024-10-01 16:27] LABS: Glucose, Whole Blood 152 mg/dL (60-115)
[2024-10-01 20:23] LABS: Glucose, Whole Blood 175 mg/dL (60-115)
[2024-10-01 23:45] VITALS: BP 118/62; PULSE 54; RESP 16; TEMP 36.2; O2SAT 95
[2024-10-02] MEDS: Piperacillin Sodium/Tazobactam 3.375 GM in 0.9 % Sodium Chloride 50 ML IV ×2 (01:58→06:35)
[2024-10-02] MEDS: 0.9 % Sodium Chloride Flush 3 ML SYRINGE IVFLUSH ×2 (01:58→07:49)
[2024-10-02] MEDS: Omeprazole 20 MG CAPSULE.DR PO (06:35)
[2024-10-02 07:10] VITALS: BP 127/61; PULSE 70; RESP 16; TEMP 36.7; O2SAT 92
[2024-10-02 07:20] LABS: Glucose, Whole Blood 105 mg/dL (60-115)
[2024-10-02] MEDS: Cyanocobalamin (Vitamin B-12) 1,000 MCG TABLET 1000 MCG PO (07:47)
[2024-10-02] MEDS: Multivitamin TABLET 1 TAB PO (07:47)
[2024-10-02] MEDS: Cholecalciferol (Vitamin D3) 25 MCG TABLET PO (07:47)
[2024-10-02] MEDS: Atorvastatin Calcium 10 MG TABLET PO (07:47)
[2024-10-02] MEDS: lisinopriL 2.5 MG TABLET PO (07:47)
[2024-10-02] MEDS: DULoxetine HCl 60 MG CAPSULE.DR PO (07:47)
[2024-10-02] MEDS: Ascorbic Acid 500 MG TABLET 1000 MG PO (07:47)
[2024-10-02] MEDS: clonazePAM 1 MG TABLET PO (07:51)
--- NOTE | 2024-10-02 08:33 | P.PNGS_ITS ---
Subjective Subjective Date of Service: 10/02/24 Interval history: Feels much better this morning Passing flatus Pain much improved No events overnight Physical Exam 2 Vital Signs: Vital Signs: Last Vital Signs Temp 98.0 F 10/02/24 07:10 Pulse 70 10/02/24 07:10 Resp 16 10/02/24 07:10 BP 127/61 10/02/24 07:10 Pulse Ox 92 10/02/24 07:10 O2 Del Method Room Air 10/02/24 07:10 BMI result Body Mass Index 27.5 Const: Other: Looks well General: comfortable and no acute distress Resp: Effort & Inspection: normal respiratory effort Cardio: Rate: regular rate GI: Palpation (GI): Soft to palpation, not firm, nontender and no guarding Objective Data Active Medications Acetaminophen (Acetaminophen 325 Mg Tablet) 650 mg PO Q6H PRN PRN Reason: Pain, Mild (Pain Scale 1-3), fever or headache Last Admin: 09/28/24 20:16 Dose: 650 mg Documented By: WILLIAM Ascorbic Acid (Ascorbic Acid 500 Mg Tablet) 1,000 mg PO DAILY [facility] Last Admin: 10/02/24 07:47 Dose: 1,000 mg Documented By: ANY Atorvastatin Calcium (Atorvastatin Calcium 10 Mg Tablet) 10 mg PO DAILY [facility] Last Admin: 10/02/24 07:47 Dose: 10 mg Documented By: ANY Calcium Carbonate (Calcium Carbonate 750 Mg Tab.Chew) 750 mg PO Q4H PRN PRN Reason: Heartburn Last Admin: 09/30/24 20:20 Dose: 750 mg Documented By: AMRIK Clonazepam (Clonazepam 1 Mg Tablet) 1 mg PO TID PRN PRN Reason: Anxiety Last Admin: 10/02/24 07:51 Dose: 1 mg Documented By: ANY Cyanocobalamin (Cyanocobalamin (Vitamin B-12) 1,000 Mcg Tablet) 1,000 mcg PO DAILY [facility] Last Admin: 10/02/24 07:47 Dose: 1,000 mcg Documented By: ANY Duloxetine HCl (Duloxetine Hcl 60 Mg Capsule.Dr) 60 mg PO DAILY [facility] Last Admin: 10/02/24 07:47 Dose: 60 mg Documented By: ANY Glucose (Glucose Gel 15 Gm Gel..Gram.) 15 gm PO Q15M PRN; Protocol PRN Reason: per Hypoglycemia Standing Ord. Piperacillin Sod/Tazobactam (Sod 3.375 gm/ Sodium Chloride) 50 mls @ 100 mls/hr IV Q6H [facility] Last Infusion: 10/02/24 07:53 Dose: Infused Documented By: ANY Dextrose (D10) 250 mls @ 750 mls/hr IV Q15M PRN; Protocol PRN Reason: per Hypoglycemia Standing Ord. Insulin Human Lispro (Insulin Lispro 100 Unit/Ml 3 Ml Vial) 0 unit SUBCUT QIDACHS [facility]; Protocol Last Admin: 10/02/24 07:35 Dose: Not Given Documented By: ANY Non-Admin Reason: No Insulin Coverage Lisinopril (Lisinopril 2.5 Mg Tablet) 2.5 mg PO DAILY [facility]; Protocol Last Admin: 10/02/24 07:47 Dose: 2.5 mg Documented By: ANY Loperamide HCl (Loperamide Hcl 2 Mg Capsule) 2 mg PO Q4H PRN PRN Reason: Diarrhea Last Admin: 10/01/24 14:50 Dose: 2 mg Documented By: NAMRATA Magnesium Hydroxide (Milk Of Magnesia 30 Ml Oral.Susp) 30 ml PO DAILY PRN PRN Reason: Constipation Melatonin (Melatonin 3 Mg Tablet) 6 mg PO BEDTIME PRN PRN Reason: Insomnia Last Admin: 09/30/24 20:20 Dose: 6 mg Documented By: AMRIK Multivitamins/Vitamin C (Multivitamin Tablet) 1 tab PO DAILY [facility] Last Admin: 10/02/24 07:47 Dose: 1 tab Documented By: ANY Nicotine (Nicotine 21 Mg Patch.Td24) 21 mg TRANSDERMA DAILY PRN PRN Reason: Smoking Cessation Omeprazole (Omeprazole 20 Mg Capsule.Dr) 20 mg PO BID@0630,1630 [facility] Last Admin: 10/02/24 06:35 Dose: 20 mg Documented By: RALF Ondansetron HCl (Ondansetron Hcl 4 Mg/2 Ml Vial) 4 mg IVPUSH Q6H PRN PRN Reason: Nausea Oxycodone HCl (Oxycodone Hcl Immed Release 5 Mg Tablet) 5 mg PO Q6H PRN PRN Reason: Pain, Moderate(Pain Scale 4-6) Last Admin: 10/01/24 14:57 Dose: 5 mg Documented By: NAMRATA Sodium Chloride (0.9 % Sodium Chloride Flush 3 Ml Syringe) 3 ml IVFLUSH QSHIFT [facility] Last Admin: 10/02/24 07:49 Dose: 3 ml Documented By: ANY Vitamin D (Cholecalciferol (Vitamin D3) 25 Mcg Tablet) 25 mcg PO DAILY [facility] Last Admin: 10/02/24 07:47 Dose: 25 mcg Documented By: ANY Labs 10/01/24 07:42 10/01/24 09:43 Labs: Laboratory Results - last 24 hr 10/01/24 10/01/24 10/01/24 07:42 09:43 10:03 MCV 86.5 MCH 29.1 MCHC 33.6 RDW 12.3 Plt Count 310 MPV 9.9 Absolute Nucleated RBC 0.000 Nucleated RBC % (auto) 0.0 Hold Purple Top SEE NOTE Anion Gap 13 Estim Creat Clear Calc 63.9 Estimated GFR > 60 POC Glucose Random Glucose 117 H Calcium 9.3 D 10/01/24 10/01/24 10/01/24 11:12 16:19 20:19 MCV MCH MCHC RDW Plt Count MPV Absolute Nucleated RBC Nucleated RBC % (auto) Hold Purple Top Anion Gap Estim Creat Clear Calc Estimated GFR POC Glucose 113 152 H 175 H Random Glucose Calcium 10/02/24 07:10 MCV MCH MCHC RDW Plt Count MPV Absolute Nucleated RBC Nucleated RBC % (auto) Hold Purple Top Anion Gap Estim Creat Clear Calc Estimated GFR POC Glucose 105 Random Glucose Calcium Procedures Date of Service Date of Service: 10/02/24 Progress Note: A&P Assessment and plan (1) Diverticulitis: Status: Acute Assessment and Plan: Diverticulitis versus colitis Much improved clinically Looks well Follow-up CT scan yesterday shows inflammatory changes to be resolved Okay to advance diet slowly as tolerated Time Spent With Patient Time: Total time managing care of this patient today ____ minutes. Quality Stroke Does the patient have a stroke diagnosis?: No VTE Prior VTE?: No VTE Risk Level:: Medical - moderate - high VTE Device Contraindication: N/A - Device Ordered VTE Drug Contraindication: Patient Refused
[2024-10-02 09:30] LABS: Anion Gap 15 (12-20); Blood Urea Nitrogen 6 mg/dL (9-16); Calcium 8.8 mg/dL (8.4-10.2); Carbon Dioxide 21 mmol/L (22-29); Chloride 108 mmol/L (96-108); Creatinine Clr Calc Pharmacy 68.3; Estimated Glomerular Filt Rate > 60; Glucose Random 100 mg/dL (60-115); Potassium 3.8 mmol/L (3.3-5.1); Sodium 140 mmol/L (135-145)
--- NOTE | 2024-10-02 09:55 | P.DS_ITS ---
DS: Providers Provider Date of Service: 10/02/24 Date of admission: 09/27/24 18:24 Date of discharge: 10/02/24 Primary care physician: Unknown Physician Consults: 09/27/24 18:24 Consult to Gastroenterology Routine Consulting Provider: [facility] [place] [facility] Reason for consultation: Acute diverticulitis Has provider been notified: No 10/01/24 08:08 Consult to General Surgery Routine Consulting Provider: [facility] [place] [facility] Reason for consultation: Acute diverticulitis/ abscess Has provider been notified: No Attending physician on discharge: Edelmira Holden Discharging clinician: Edelmira Holden DS: Diagnosis Discharge Diagnosis (1) Diverticulitis: Status: Acute DS: Summary Hospital Course Hospital Course: 69 yo F with PMH of depression, DM, HLD, baby aspirin daily but no thinners, last colonoscopy 1.5 years ago had one polyp, remote hx of colitis -patient comes with abd pain /nausea for 1 day duration.she also has nausea and decreased apptite , Last night started with brbper rectum not with stool has some clots, no diarrhea. abd lower abdominal pain mostly intermittent , feels weak and has some dizziness which is improving. She says she received IV pain medication and after that feeling somewhat better. She denies recent travel, antibiotics in the last month, food exposures. Notes she started a new medication of lisinopril for proteinuria. socia; hx : 40 pack year hx of somkin, no etoh or rec drugs. Lab imaging EKG reviewed: Has mild leukocytosis 11.4, ekg -nsr ,mild tachycardia. Lactic acid normal ct abd:There is a length of sigmoid colon wall thickening with adjacent inflammatory stranding. On delayed phase imaging there is a 2 cm peripherally enhancing mural collection along the left lateral rectosigmoid colon, distal to the previously described inflammatory stranding- concerning for acute diverticulitis versus colitis with a small mural abscess. In ED patient received IV pain medication and antibiotic and admission was requested for possible acute diverticulitis versus colitis. Hospital course: Patient was admitted to the hospital because of abdominal pain: Further workup with CT scan found have acute diverticulitis with question of abscess, also had hematochezia: Patient was started on bowel rest, IV antibiotics, and hydration ,GI consulted: With above supportive care patient seems to be improved significantly, repeat CT scan shows significant improvement. Leukocytosis resolved, no fever, tolerating diet.switched to po augmentin upon discharge. Hematochezia liklet to above ,also resolved: H&H stable ct abd:Low-density nodules, adrenal glands. Lipid rich adenoma (based upon noncontrast CT dated September 01, 2019). further management outpatient. Nonspecific lesion in the anterior lower pole/midportion junction left kidney. renal ultrasound [id number] left renal cysts measuring up to 1.2 cm, likely corresponding to the prior CT findings. No concerning parenchymal lesion appreciated on ultrasound.further management outpatient. plan: Patient will be going home with p.o. antibiotics-Augmentin 875 mg b.i.d. for 5 days. Can start aspirin back tomorrow. Check CBC in 1 week. Follow-up with GI outpatient for possible colonoscopy consideration. Time Attestation Total time managing care of this patient today: 40 mintues. Discharge Coordination Time (in mins): 40 min Quality: Safe Use of Opioids Does Pt have an Active Cancer Diagnosis on the Problem List?: No Quality: Stroke Does the patient have a stroke diagnosis?: No Physical Exam Vital Signs: Vital Signs: Last Vital Signs Temp 98.0 F 10/02/24 07:10 Pulse 70 10/02/24 07:10 Resp 16 10/02/24 07:10 BP 127/61 10/02/24 07:10 Pulse Ox 92 10/02/24 07:10 O2 Del Method Room Air 10/02/24 07:10 BMI result Body Mass Index 27.5 Appearance: Alert.? Oriented X3.? seems somfotable Moist mucous membranes. cvs: rrr, [id number] . res: clear to auscultation ,no rhonchii or wheezing abd: no rebound or guarding ,nt, bs present. ext pulses present , no cyanosis . neuro: axo3 , nonfocal. DS: Data Data Completed and Pending Labs on day of discharge: Laboratory Results - last 24 hr 10/01/24 10/01/24 10/01/24 09:43 10:03 11:12 Hold Purple Top SEE NOTE Sodium 141 Potassium 3.8 Chloride 106 Carbon Dioxide 26 Anion Gap 13 BUN 7 L Creatinine 0.77 Estim Creat Clear Calc 63.9 Estimated GFR > 60 POC Glucose 113 Random Glucose 117 H Calcium 9.3 D 10/01/24 10/01/24 10/02/24 16:19 20:19 07:10 Hold Purple Top Sodium Potassium Chloride Carbon Dioxide Anion Gap BUN Creatinine Estim Creat Clear Calc Estimated GFR POC Glucose 152 H 175 H 105 Random Glucose Calcium 10/02/24 07:39 Hold Purple Top Sodium 140 Potassium 3.8 Chloride 108 Carbon Dioxide 21 L Anion Gap 15 BUN 6 L Creatinine 0.72 Estim Creat Clear Calc 68.3 Estimated GFR > 60 POC Glucose Random Glucose 100 Calcium 8.8 Imaging Chest x-ray: Radiologist's impression: ITS Impressions Abdomen/Pelvis CT 09/27/24 16:07 IMPRESSION: 1. There is a length of sigmoid colon wall thickening with adjacent inflammatory stranding. On delayed phase imaging there is a 2 cm peripherally enhancing mural collection along the left lateral rectosigmoid colon, distal to the previously described inflammatory stranding. No significant diverticulosis. Findings are concerning for acute diverticulitis versus colitis with a small mural abscess. 2. There is an anterior left renal 1.2 cm hyperattenuating cystic structure measuring up to 70 Hounsfield units. This may represent a hemorrhagic/proteinaceous cyst, however a solid renal mass cannot be excluded. Recommend further evaluation with renal ultrasound. 3. There is no evidence for contrast extravasation to suggest acute gastroduodenal bleeding. Fleischner guidelines were followed. Renal Ultrasound 09/28/24 11:42 IMPRESSION: 1. Simple-appearing left renal cysts measuring up to 1.2 cm, likely corresponding to the prior CT findings. No concerning parenchymal lesion appreciated on ultrasound. 2. No hydronephrosis or nephrolithiasis. Abdomen/Pelvis CT 10/01/24 12:12 IMPRESSION: Resolved inflammatory/infectious process in the sigmoid colon. Atherosclerosis disease. Low-density nodules, adrenal glands. Lipid rich adenoma (based upon noncontrast CT dated September 01, 2019). Nonspecific lesion in the anterior lower pole/midportion junction left kidney. Recommend renal ultrasound Fleischner guidelines were followed. Discharge Plan Discharge Anticipated Discharge Date/Time: 10/02/24 09:48 Patient Disposition: Home, Self-Care Discharge Diagnosis: Acute diverticulitis with hematochezia. Referrals: Physician,Unknown J [Primary Care Provider] - 1 Week Discharge Medications: New docusate sodium [Colace] 100 mg capsule 100 mg PO BID PRN (Reason: constipation) Qty: 30 0RF amoxicillin-pot clavulanate 875-125 mg Tablet 1 tab PO Q12H Qty: 10 0RF Continued metformin 500 mg tablet 1,000 mg PO BEDTIME atorvastatin 10 mg tablet 10 mg PO DAILY clonazepam 1 mg tablet 1 mg PO TID PRN (Reason: Anxiety) nicotine 21 mg/24 hr patch 24 hour 1 patch topical DAILY PRN (Reason: Smoking Cessation) omeprazole 20 mg capsule,delayed release(DR/EC) 20 mg PO BID@0630,1630 lisinopril 2.5 mg tablet 2.5 mg PO DAILY duloxetine 60 mg capsule,delayed release(DR/EC) 60 mg PO DAILY Ozempic 1 mg/dose (4 mg/3 mL) pen injector 1 mg subcut [place] multivitamin Tablet 1 tab PO DAILY ascorbic acid (vitamin C) [Vitamin C] 1,000 mg Tablet 1,000 mg PO DAILY cyanocobalamin (vitamin B-12) [Vitamin B-12] 1,000 mcg Tablet 1,000 mcg PO DAILY cholecalciferol (vitamin D3) [Vitamin D3] 25 mcg (1,000 unit) Tablet 25 mcg PO DAILY omega 7-vho-[id number]-fish oil [Fish Oil] 1,200 (144-216) mg Capsule 1 cap PO DAILY melatonin 10 mg Tablet 10 mg PO BEDTIME PRN (Reason: Sleep) Held aspirin 81 mg Tablet,Delayed Release (Dr/Ec) 81 mg PO DAILY Hold Instructions: Resume on 10/03/24. Discharge Orders: Discharge Order (Routine); Ordered 10/02/24 Ordered By: Edelmira Holden Diet: Advance to usual diet Activity on Discharge: As tolerated Stand Alone Forms: Patient Portal Discharge page Print Language: Belarusian Care Plan Goals: Patient was admitted to the hospital because of abdominal pain: Further workup with CT scan found have acute diverticulitis with question of abscess, also had hematochezia: Patient was started on bowel rest, IV antibiotics, and hydration ,GI consulted: With above supportive care patient seems to be improved significantly, repeat CT scan shows significant improvement. Leukocytosis resolved, no fever, tolerating diet. Hematochezia also resolved: H&H stable Patient will be going home with p.o. antibiotics-Augmentin 875 mg b.i.d. for 5 days. Can start aspirin back tomorrow. Check CBC in 1 week. Follow-up with GI outpatient for possible colonoscopy consideration. Health Concerns: As above. Plan of Treatment: Augmentin 875 mg b.i.d. for 5 days. Can start aspirin back tomorrow. Check CBC in 1 week. Follow-up with GI outpatient for possible colonoscopy consideration. Assessment: As above.
--- NOTE | 2024-10-02 10:19 | MHC.CM.PN ---
Per MD rounds, patient medically cleared for dc home self care. Sister to transport. IMM delivered.
[2024-10-02] MEDS: Amoxicillin/Potassium Clav 875 MG TABLET PO (10:40)
[2024-10-02 11:26] LABS: Glucose, Whole Blood 86 mg/dL (60-115)
== END 2024-10-02 14:39 | disposition home or self-care (01) | DRG 379 ==
LOC: HO.ED 18:07 → HO.EDOVER 18:31 → HO.S3 23:42
PROVIDERS: Emergency Medicine; Physician Assistant Medical; Admitting Provider Internal Medicine; Emergency Provider Emergency Medicine; PCP Physician Assistant; Visit Provider Internal Medicine
DX: K57.21 Diverticulitis of large intestine with perforation and abscess with bleeding (principal); I10 Essential (primary) hypertension; E11.9 Type 2 diabetes mellitus without complications; E78.5 Hyperlipidemia, unspecified; F17.210 Nicotine dependence, cigarettes, uncomplicated; Z71.6 Tobacco abuse counseling; Z79.82 Long term (current) use of aspirin; Z79.84 Long term (current) use of oral hypoglycemic drugs; Z79.85 Long-term (current) use of injectable non-insulin antidiabetic drugs; Z79.899 Other long term (current) drug therapy
CPT/HCPCS: 36415; 74177; 74178; 76775; 80048; 80053; 82272; 82947; 83605; 83690; 85014; 85018; 85025; 85027; 85610; 85652; 86140; 86850; 86900; 86901; 87493; 87507; 99285; J0696; J1836; J2270; J2405; J2543; J7120; Q9967

== ENCOUNTER 2024-09-27 18:24 | Outpatient (BNV) | payer MEDICARE, BC, SELFPAY | END 2024-10-01 12:12 | PROVIDERS: Admitting Provider Internal Medicine; Emergency Provider Emergency Medicine; Visit Provider Radiology Diagnostic Radiology | DX: R10.9 Unspecified abdominal pain (principal) | CPT/HCPCS: 74177 ==

== ENCOUNTER → 2024-09-27 18:24 | Outpatient (BNV) | payer MEDICARE, BC, SELFPAY | PROVIDERS: Admitting Provider Internal Medicine; Emergency Provider Emergency Medicine; Visit Provider Internal Medicine | DX: K57.92 Diverticulitis of intestine, part unspecified, without perforation or abscess without bleeding (principal) | CPT/HCPCS: 99222; 99232; 99239 ==

== ENCOUNTER → 2024-09-27 18:24 | Outpatient (BNV) | payer MEDICARE, BC, SELFPAY | PROVIDERS: Admitting Provider Internal Medicine; Emergency Provider Emergency Medicine; Visit Provider Physician Assistant Surgical | DX: K57.92 Diverticulitis of intestine, part unspecified, without perforation or abscess without bleeding (principal) | CPT/HCPCS: 99222; 99231; 99499 ==